=== PATIENT | male | born 1970 | race Caucasian/White ===

== ENCOUNTER 2017-01-11 14:16 | Inpatient (IN) | payer MEDICAID ==
[~2017-01-11] VITALS: Ht 170.2 cm; Wt 181.1 kg
[2017-01-11 15:30] LABS: Basophils # (auto) 0.1 uL; Basophils % (auto) 0.8 % (0.0-2.0); Eosinophils # (auto) 0.2 uL; Eosinophils % (auto) 1.5 % (0.0-7.0); Hematocrit 40.8 % (41.0-53.0); Hemoglobin 13.7 g/dL (13.5-17.5); Lymphocytes # (auto) 1.3 uL; Lymphocytes % (auto) 10.2 % (10.0-50.0); Mean Corpuscular Hemoglobin 32.8 pg (28.0-32.0); Mean Corpuscular Hgb Conc. 33.5 g/dL (32.0-36.0); Mean Corpuscular Volume 97.9 fL (80.0-100.0); Mean Platelet Volume 7.6 fL (7.4-10.4); Monocytes # (auto) 1.1 uL; Monocytes % (auto) 8.9 % (0.0-12.0); Neutrophils # (auto) 9.8 uL; Neutrophils % (auto) 78.6 % (37.0-80.0); Platelet Count (auto) 209 10^3/uL (140-450); Red Cell Distribution Width 16.1 % (11.6-16.0); White Blood Cell 12.4 10^3/uL (4.4-10.8)
[2017-01-11 15:45] LABS: Albumin 3.2 g/dL (3.4-5.0); BUN/Creatinine Ratio 12.4; Bilirubin, Total 0.9 mg/dL (0.2-1.0); Calcium 8.3 mg/dL (8.5-10.1); Potassium 4.3 mmol/L (3.5-5.1); Total Protein 6.5 g/dL (6.4-8.2)
[2017-01-11] MEDS ORDERED: ENOXAPARIN SOD 30 MG/0.3 ML SYRINGE IV ONE (17:15)
[2017-01-11] MEDS ORDERED: cefTRIAXone 1GM/50ML D5W 50 ML IV ONE (17:15)
[2017-01-11] MEDS ORDERED: ASPirin 81 mg TAB PO ONE (17:15)
[2017-01-11] MEDS ORDERED: MORPHINE SULF INJ 2 MG/ML SYRINGE 1ML IV PRN (17:45)
[2017-01-11] MEDS: DOXYCYCLINE HYC 100MG/250ML 250 ML IV SCH (17:45)
[2017-01-11] MEDS ORDERED: PROMETHAZINE HCL 25 MG/ML 1ML IV PRN (17:45)
[2017-01-11] MEDS ORDERED: ALBUTEROL SULF 2.5 MG/0.5ML(0.5%) NEB SOLN NEB PRN (17:45)
[2017-01-11] MEDS ORDERED: NITROGLYCERIN 0.4 MG SL TAB SL PRN (17:45)
[2017-01-11] MEDS ORDERED: OSELTAMIVIR 75 MG CAP PO ONE (17:45)
[2017-01-11] MEDS ORDERED: LORazepam 0.5 MG TAB PO PRN (17:45)
[2017-01-11] MEDS ORDERED: LACTULOSE 20Gm/30ML SOLN PO PRN (17:45)
[2017-01-11] MEDS: IPRATROPIUM BROM 0.5 MG/2.5ML INH SOL NEB SCH (18:00)
[2017-01-11] MEDS: ALBUTEROL SULF 2.5 MG/0.5ML(0.5%) NEB SOLN NEB SCH (18:00)
[2017-01-11] MEDS ORDERED: ENALAPRIL MALEATE 2.5 MG TAB PO ONE (18:00)
[2017-01-11] MEDS ORDERED: NITROGLYCERIN 0.2MG/HR TOPICAL PATCH TD ONE (18:15)
[2017-01-11 18:51] LABS: B-Type Natriuretic Peptide 1213.8 pg/mL (0-100); Temperature: 22.7 C (20.0-25.0)
[2017-01-11] MEDS ORDERED: IOHEXOL 350 MG/ML 100ML IJ ONE ×2 (19:08→23:12)
[2017-01-11] MEDS: FUROSEMIDE 20 MG/2 ML VIAL IV SCH (20:36)
[2017-01-11] MEDS: POTASSIUM CHL 10 Meq TABLET PO SCH (21:05)
[2017-01-11] MEDS: MORPHINE SULF INJ 2 MG/ML SYRINGE 1ML IV PRN (21:15)
[2017-01-11] MEDS: SODIUM CHLOR 0.9% PF (SALINE LOCK) 10ML VIAL IV SCH (21:57)
[2017-01-11] MEDS: CARVEDILOL 3.125 MG TAB PO SCH (22:00)
[2017-01-12] MEDS: OSELTAMIVIR 75 MG CAP PO SCH ×3 (01:15→22:00)
[2017-01-12] MEDS: TEMAZEPAM 15 MG CAP PO PRN (01:15)
[2017-01-12 01:16] VITALS: BP 110/60
[2017-01-12] MEDS: HYDROcodone-ACET 5/325MG TAB PO PRN ×3 (01:16→09:51)
[2017-01-12 04:49] LABS: Basophils # (auto) 0.1 uL; Basophils % (auto) 0.6 % (0.0-2.0); Eosinophils # (auto) 0.1 uL; Eosinophils % (auto) 1.1 % (0.0-7.0); Hematocrit 39.2 % (41.0-53.0); Hemoglobin 12.8 g/dL (13.5-17.5); Lymphocytes % (auto) 9.9 % (10.0-50.0); Mean Corpuscular Hemoglobin 32.1 pg (28.0-32.0); Mean Corpuscular Hgb Conc. 32.7 g/dL (32.0-36.0); Mean Corpuscular Volume 98.1 fL (80.0-100.0); Mean Platelet Volume 7.5 fL (7.4-10.4); Monocytes # (auto) 0.9 uL; Neutrophils # (auto) 7.7 uL; Neutrophils % (auto) 79.4 % (37.0-80.0); Platelet Count (auto) 193 10^3/uL (140-450); White Blood Cell 9.7 10^3/uL (4.4-10.8)
[2017-01-12 05:04] LABS: Temperature: 20.1 C (20.0-25.0)
[2017-01-12 05:15] LABS: Albumin 2.9 g/dL (3.4-5.0); BUN/Creatinine Ratio 13.3; Calcium 7.9 mg/dL (8.5-10.1); Potassium 4.3 mmol/L (3.5-5.1)
[2017-01-12] MEDS: ENOXAPARIN SOD 80 MG/0.8ML SYRINGE SC SCH ×2 (05:27→16:39)
[2017-01-12] MEDS: DOXYCYCLINE HYC 100MG/250ML 250 ML IV SCH ×2 (05:45→17:29)
[2017-01-12] MEDS: SODIUM CHLOR 0.9% PF (SALINE LOCK) 10ML VIAL IV SCH ×3 (06:00→22:06)
[2017-01-12] MEDS: ALBUTEROL SULF 2.5 MG/0.5ML(0.5%) NEB SOLN NEB SCH ×4 (07:00→18:50)
[2017-01-12] MEDS: IPRATROPIUM BROM 0.5 MG/2.5ML INH SOL NEB SCH ×4 (07:00→18:50)
[2017-01-12] MEDS: FUROSEMIDE 20 MG/2 ML VIAL IV SCH (09:47)
[2017-01-12] MEDS: ENALAPRIL MALEATE 2.5 MG TAB PO SCH (09:48)
[2017-01-12] MEDS: CARVEDILOL 3.125 MG TAB PO SCH ×2 (09:48→22:00)
[2017-01-12] MEDS: NITROGLYCERIN 0.2MG/HR TOPICAL PATCH TD SCH (09:49)
[2017-01-12] MEDS ORDERED: ENOXAPARIN SOD 40 MG/0.4 ML SYRINGE SC SCH (10:00)
[2017-01-12] MEDS: ASPirin 81 mg TAB PO SCH (10:04)
[2017-01-12] MEDS: POTASSIUM CHL 10 Meq TABLET PO SCH (10:05)
[2017-01-12 17:17] LABS: INR 1.08 (0.9-1.15); Partial Thromboplastin Time 26.8 sec (22.64-33.71); Prothrombin Time 11.1 sec (9.37-12.3)
[2017-01-12] MEDS: MORPHINE SULF INJ 2 MG/ML SYRINGE 1ML IV PRN ×2 (17:30→23:12)
[2017-01-12] MEDS ORDERED: WARFARIN SODIUM 10 MG TAB PO ONE (18:00)
[2017-01-12] MEDS: ACETAMINOPHEN 500 MG TAB PO PRN (19:46)
[2017-01-12 21:45] VITALS: BP 149/75
[2017-01-12] MEDS: methylPREDNISolone SOD SUCC 40 MG/ML VL IV SCH (22:25)
[2017-01-13] MEDS: ALBUTEROL SULF 2.5 MG/0.5ML(0.5%) NEB SOLN NEB SCH ×4 (00:30→18:56)
[2017-01-13] MEDS: IPRATROPIUM BROM 0.5 MG/2.5ML INH SOL NEB SCH ×4 (00:30→18:56)
[2017-01-13 01:20] VITALS: BP 108/44
[2017-01-13] MEDS: ACETAMINOPHEN 500 MG TAB PO PRN (01:31)
[2017-01-13] MEDS: TEMAZEPAM 15 MG CAP PO PRN (01:31)
[2017-01-13 04:00] VITALS: BP 104/59
[2017-01-13 04:57] LABS: Basophils # (auto) 0 uL; Basophils % (auto) 0.1 % (0.0-2.0); Eosinophils # (auto) 0 uL; Hematocrit 40.6 % (41.0-53.0); Hemoglobin 13.5 g/dL (13.5-17.5); Lymphocytes # (auto) 0.4 uL; Mean Corpuscular Hemoglobin 32.3 pg (28.0-32.0); Mean Corpuscular Hgb Conc. 33.3 g/dL (32.0-36.0); Mean Corpuscular Volume 96.9 fL (80.0-100.0); Monocytes # (auto) 0.1 uL; Monocytes % (auto) 2.2 % (0.0-12.0); Neutrophils % (auto) 91.7 % (37.0-80.0); Platelet Count (auto) 186 10^3/uL (140-450); White Blood Cell 6.6 10^3/uL (4.4-10.8)
[2017-01-13 05:25] LABS: INR 1.14 (0.9-1.15); Partial Thromboplastin Time 29.1 sec (22.64-33.71); Prothrombin Time 11.7 sec (9.37-12.3)
[2017-01-13 05:30] LABS: BUN/Creatinine Ratio 13.7; Calcium 8.5 mg/dL (8.5-10.1); Magnesium 2.1 mg/dL (1.6-2.6); Phosphorus 2.8 mg/dL (2.5-4.90); Potassium 4.4 mmol/L (3.5-5.1)
[2017-01-13] MEDS: DOXYCYCLINE HYC 100MG/250ML 250 ML IV SCH ×2 (06:03→17:29)
[2017-01-13] MEDS: ENOXAPARIN SOD 80 MG/0.8ML SYRINGE SC SCH ×2 (06:03→17:29)
[2017-01-13] MEDS: SODIUM CHLOR 0.9% PF (SALINE LOCK) 10ML VIAL IV SCH ×3 (06:03→22:56)
[2017-01-13] MEDS: methylPREDNISolone SOD SUCC 40 MG/ML VL IV SCH ×3 (06:03→22:55)
[2017-01-13 08:00] VITALS: BP 111/77
[2017-01-13] MEDS: NITROGLYCERIN 0.2MG/HR TOPICAL PATCH TD SCH (10:00)
[2017-01-13] MEDS: ENALAPRIL MALEATE 2.5 MG TAB PO SCH (10:00)
[2017-01-13] MEDS: ASPirin 81 mg TAB PO SCH (10:12)
[2017-01-13] MEDS: CARVEDILOL 3.125 MG TAB PO SCH ×2 (10:12→22:56)
[2017-01-13] MEDS: POTASSIUM CHL 10 Meq TABLET PO SCH (10:12)
[2017-01-13] MEDS: FUROSEMIDE 20 MG/2 ML VIAL IV SCH (10:12)
[2017-01-13] MEDS: HYDROcodone-ACET 5/325MG TAB PO PRN ×2 (10:13→19:33)
[2017-01-13] MEDS: NICOTINE 14 MG/24HR TOPICAL PATCH TD SCH (13:57)
[2017-01-13 16:00] VITALS: BP 112/79
[2017-01-13] MEDS ORDERED: WARFARIN SODIUM 10 MG TAB PO ONE (17:00)
[2017-01-13 19:51] VITALS: BP 110/74
[2017-01-14] VITALS: BP 117/80
[2017-01-14] MEDS: ALBUTEROL SULF 2.5 MG/0.5ML(0.5%) NEB SOLN NEB SCH ×4 (00:50→18:54)
[2017-01-14] MEDS: IPRATROPIUM BROM 0.5 MG/2.5ML INH SOL NEB SCH ×4 (00:50→18:54)
[2017-01-14] MEDS: TEMAZEPAM 15 MG CAP PO PRN ×2 (01:05→22:21)
[2017-01-14] MEDS: HYDROcodone-ACET 5/325MG TAB PO PRN (01:06)
[2017-01-14] MEDS: MORPHINE SULF INJ 2 MG/ML SYRINGE 1ML IV PRN ×2 (01:16→19:36)
[2017-01-14 04:00] VITALS: BP 97/71
[2017-01-14 05:01] LABS: Basophils # (auto) 0 uL; Eosinophils # (auto) 0 uL; Hematocrit 41.3 % (41.0-53.0); Hemoglobin 13.8 g/dL (13.5-17.5); Lymphocytes # (auto) 0.7 uL; Mean Corpuscular Hemoglobin 32.4 pg (28.0-32.0); Mean Corpuscular Hgb Conc. 33.3 g/dL (32.0-36.0); Mean Corpuscular Volume 97.5 fL (80.0-100.0); Mean Platelet Volume 7.6 fL (7.4-10.4); Monocytes # (auto) 0.5 uL; Monocytes % (auto) 4.3 % (0.0-12.0); Neutrophils # (auto) 10.2 uL; Neutrophils % (auto) 89.7 % (37.0-80.0); Platelet Count (auto) 200 10^3/uL (140-450); Red Cell Distribution Width 15.9 % (11.6-16.0); White Blood Cell 11.4 10^3/uL (4.4-10.8)
[2017-01-14 05:15] LABS: Partial Thromboplastin Time 29.9 sec (22.64-33.71)
[2017-01-14 05:16] LABS: INR 1.52 (0.9-1.15); Prothrombin Time 15.7 sec (9.37-12.3)
[2017-01-14 05:19] LABS: Calcium 8.6 mg/dL (8.5-10.1); Magnesium 2.2 mg/dL (1.6-2.6); Potassium 4.7 mmol/L (3.5-5.1)
[2017-01-14 05:22] LABS: BUN/Creatinine Ratio 23.2; Phosphorus 2.9 mg/dL (2.5-4.90)
[2017-01-14] MEDS ORDERED: FURO40TA PO (05:40)
[2017-01-14] MEDS ORDERED: CAR3125T PO (05:40)
[2017-01-14] MEDS ORDERED: ENA2.5T PO (05:40)
[2017-01-14] MEDS: ENOXAPARIN SOD 80 MG/0.8ML SYRINGE SC SCH ×2 (06:33→17:18)
[2017-01-14] MEDS: SODIUM CHLOR 0.9% PF (SALINE LOCK) 10ML VIAL IV SCH ×3 (06:34→22:23)
[2017-01-14] MEDS: DOXYCYCLINE HYC 100MG/250ML 250 ML IV SCH ×2 (06:34→17:18)
[2017-01-14 08:10] VITALS: BP 112/73
[2017-01-14] MEDS: ACETAMINOPHEN 500 MG TAB PO PRN (09:02)
[2017-01-14] MEDS: ENALAPRIL MALEATE 2.5 MG TAB PO SCH (10:00)
[2017-01-14] MEDS: POTASSIUM CHL 10 Meq TABLET PO SCH (10:00)
[2017-01-14] MEDS: NITROGLYCERIN 0.2MG/HR TOPICAL PATCH TD SCH (10:00)
[2017-01-14] MEDS: FUROSEMIDE 20 MG/2 ML VIAL IV SCH (10:00)
[2017-01-14] MEDS: ASPirin 81 mg TAB PO SCH (10:07)
[2017-01-14] MEDS: methylPREDNISolone SOD SUCC 40 MG/ML VL IV SCH (10:07)
[2017-01-14] MEDS: NICOTINE 14 MG/24HR TOPICAL PATCH TD SCH (10:08)
[2017-01-14] MEDS: CARVEDILOL 3.125 MG TAB PO SCH ×2 (10:08→22:22)
[2017-01-14 12:00] VITALS: BP 91/56
[2017-01-14 15:59] VITALS: BP 93/66
[2017-01-14] MEDS ORDERED: WARFARIN SODIUM 5 MG TAB PO ONE (17:00)
[2017-01-14 19:57] VITALS: BP 155/70
[2017-01-14] MEDS: guaiFENesin-DEXTROMETHORPHAN 5ML SYR PO PRN (22:20)
[2017-01-14] MEDS: predniSONE 20 MG TAB PO SCH (22:21)
[2017-01-15] VITALS (8 sets, daily range): BP systolic 88–112; BP diastolic 62–79
[2017-01-15] MEDS: MORPHINE SULF INJ 2 MG/ML SYRINGE 1ML IV PRN ×4 (01:12→22:31)
[2017-01-15] MEDS: ALBUTEROL SULF 2.5 MG/0.5ML(0.5%) NEB SOLN NEB SCH ×4 (02:00→19:56)
[2017-01-15] MEDS: IPRATROPIUM BROM 0.5 MG/2.5ML INH SOL NEB SCH ×4 (02:00→19:56)
[2017-01-15] MEDS: DOXYCYCLINE HYC 100MG/250ML 250 ML IV SCH ×2 (05:33→17:02)
[2017-01-15] MEDS: SODIUM CHLOR 0.9% PF (SALINE LOCK) 10ML VIAL IV SCH ×3 (05:33→21:28)
[2017-01-15] MEDS: ENOXAPARIN SOD 80 MG/0.8ML SYRINGE SC SCH (05:33)
[2017-01-15 06:24] LABS: Basophils # (auto) 0 uL; Eosinophils # (auto) 0 uL; Hematocrit 39.7 % (41.0-53.0); Hemoglobin 12.9 g/dL (13.5-17.5); Lymphocytes # (auto) 1.1 uL; Lymphocytes % (auto) 7.6 % (10.0-50.0); Mean Corpuscular Hgb Conc. 32.5 g/dL (32.0-36.0); Mean Corpuscular Volume 98.4 fL (80.0-100.0); Mean Platelet Volume 7.6 fL (7.4-10.4); Monocytes # (auto) 0.6 uL; Monocytes % (auto) 4.4 % (0.0-12.0); Neutrophils # (auto) 12.5 uL; Platelet Count (auto) 205 10^3/uL (140-450); Red Cell Distribution Width 16.4 % (11.6-16.0); White Blood Cell 14.2 10^3/uL (4.4-10.8)
[2017-01-15 06:36] LABS: Partial Thromboplastin Time 35.6 sec (22.64-33.71)
[2017-01-15 07:02] LABS: Prothrombin Time 29.6 sec (9.37-12.3)
[2017-01-15 07:03] LABS: INR 2.87 (0.9-1.15)
[2017-01-15 07:40] LABS: BUN/Creatinine Ratio 22.8; Calcium 8.4 mg/dL (8.5-10.1); Magnesium 2.2 mg/dL (1.6-2.6); Phosphorus 3.5 mg/dL (2.5-4.90); Potassium 4.7 mmol/L (3.5-5.1)
[2017-01-15] MEDS: guaiFENesin-DEXTROMETHORPHAN 5ML SYR PO PRN (09:13)
[2017-01-15] MEDS: ASPirin 81 mg TAB PO SCH (09:25)
[2017-01-15] MEDS: NICOTINE 14 MG/24HR TOPICAL PATCH TD SCH (09:26)
[2017-01-15] MEDS: predniSONE 20 MG TAB PO SCH ×2 (09:27→21:29)
[2017-01-15] MEDS: POTASSIUM CHL 10 Meq TABLET PO SCH (10:00)
[2017-01-15] MEDS: CARVEDILOL 3.125 MG TAB PO SCH ×2 (10:00→21:29)
[2017-01-15] MEDS: FUROSEMIDE 20 MG/2 ML VIAL IV SCH (10:00)
[2017-01-15] MEDS: NITROGLYCERIN 0.2MG/HR TOPICAL PATCH TD SCH (10:00)
[2017-01-15] MEDS: ENALAPRIL MALEATE 2.5 MG TAB PO SCH (10:00)
[2017-01-16] MEDS: IPRATROPIUM BROM 0.5 MG/2.5ML INH SOL NEB SCH ×4 (00:29→18:50)
[2017-01-16] MEDS: ALBUTEROL SULF 2.5 MG/0.5ML(0.5%) NEB SOLN NEB SCH ×4 (00:30→18:50)
[2017-01-16] MEDS: MORPHINE SULF INJ 2 MG/ML SYRINGE 1ML IV PRN ×4 (02:52→16:58)
[2017-01-16] MEDS: SODIUM CHLOR 0.9% PF (SALINE LOCK) 10ML VIAL IV SCH ×2 (04:46→14:32)
[2017-01-16] MEDS: DOXYCYCLINE HYC 100MG/250ML 250 ML IV SCH ×2 (04:47→17:09)
[2017-01-16 05:00] VITALS: BP 103/48
[2017-01-16 05:59] LABS: Basophils # (auto) 0 uL; Eosinophils # (auto) 0 uL; Eosinophils % (auto) 0.1 % (0.0-7.0); Hematocrit 42.5 % (41.0-53.0); Hemoglobin 13.8 g/dL (13.5-17.5); Lymphocytes # (auto) 0.8 uL; Lymphocytes % (auto) 8.1 % (10.0-50.0); Mean Corpuscular Hemoglobin 31.9 pg (28.0-32.0); Mean Corpuscular Hgb Conc. 32.4 g/dL (32.0-36.0); Mean Corpuscular Volume 98.5 fL (80.0-100.0); Mean Platelet Volume 7.5 fL (7.4-10.4); Monocytes # (auto) 0.6 uL; Monocytes % (auto) 6.2 % (0.0-12.0); Neutrophils # (auto) 8.9 uL; Neutrophils % (auto) 85.6 % (37.0-80.0); Platelet Count (auto) 202 10^3/uL (140-450); Red Cell Distribution Width 16.4 % (11.6-16.0); White Blood Cell 10.4 10^3/uL (4.4-10.8)
[2017-01-16 06:19] LABS: Partial Thromboplastin Time 32.4 sec (22.64-33.71)
[2017-01-16 06:30] LABS: INR 2.02 (0.9-1.15); Prothrombin Time 21.8 sec (9.37-12.3)
[2017-01-16 06:41] LABS: BUN/Creatinine Ratio 23.9; Calcium 8.4 mg/dL (8.5-10.1); Magnesium 2.4 mg/dL (1.6-2.6); Potassium 5.3 mmol/L (3.5-5.1)
[2017-01-16 08:00] VITALS: BP 99/72
[2017-01-16] MEDS: HYDROcodone-ACET 5/325MG TAB PO PRN ×2 (08:33→21:55)
[2017-01-16] MEDS: POTASSIUM CHL 10 Meq TABLET PO SCH (10:00)
[2017-01-16] MEDS: ENALAPRIL MALEATE 2.5 MG TAB PO SCH (10:00)
[2017-01-16] MEDS: NITROGLYCERIN 0.2MG/HR TOPICAL PATCH TD SCH (10:00)
[2017-01-16] MEDS: CARVEDILOL 3.125 MG TAB PO SCH ×2 (10:19→21:55)
[2017-01-16] MEDS: predniSONE 20 MG TAB PO SCH ×2 (10:19→21:55)
[2017-01-16] MEDS: ASPirin 81 mg TAB PO SCH (10:19)
[2017-01-16] MEDS: FUROSEMIDE 20 MG/2 ML VIAL IV SCH (10:19)
[2017-01-16] MEDS: NICOTINE 14 MG/24HR TOPICAL PATCH TD SCH (10:20)
[2017-01-16 12:30] VITALS: BP 110/78
[2017-01-16 17:00] VITALS: BP 106/75
[2017-01-16] MEDS ORDERED: WARFARIN SODIUM 5 MG TAB PO ONE (17:00)
[2017-01-16] MEDS: TEMAZEPAM 15 MG CAP PO PRN (21:55)
[2017-01-16 21:59] VITALS: BP 92/56
[2017-01-17] MEDS: ALBUTEROL SULF 2.5 MG/0.5ML(0.5%) NEB SOLN NEB SCH ×4 (00:16→18:25)
[2017-01-17] MEDS: IPRATROPIUM BROM 0.5 MG/2.5ML INH SOL NEB SCH ×4 (00:16→18:25)
[2017-01-17] MEDS: HYDROcodone-ACET 5/325MG TAB PO PRN ×3 (04:13→18:28)
[2017-01-17 05:00] VITALS: BP 93/56
[2017-01-17] MEDS: SODIUM CHLOR 0.9% PF (SALINE LOCK) 10ML VIAL IV SCH ×4 (05:38→21:58)
[2017-01-17] MEDS: DOXYCYCLINE HYC 100MG/250ML 250 ML IV SCH ×2 (05:39→17:37)
[2017-01-17 07:38] LABS: INR 1.86 (0.9-1.15); Partial Thromboplastin Time 30.6 sec (22.64-33.71); Prothrombin Time 20.1 sec (9.37-12.3)
[2017-01-17 08:24] VITALS: BP 97/68
[2017-01-17] MEDS: NITROGLYCERIN 0.2MG/HR TOPICAL PATCH TD SCH (10:00)
[2017-01-17] MEDS: ENALAPRIL MALEATE 2.5 MG TAB PO SCH (10:00)
[2017-01-17] MEDS: FUROSEMIDE 20 MG/2 ML VIAL IV SCH (10:00)
[2017-01-17] MEDS: NICOTINE 14 MG/24HR TOPICAL PATCH TD SCH (10:07)
[2017-01-17] MEDS: CARVEDILOL 3.125 MG TAB PO SCH ×2 (10:07→21:59)
[2017-01-17] MEDS: predniSONE 20 MG TAB PO SCH ×2 (10:08→21:58)
[2017-01-17] MEDS: ASPirin 81 mg TAB PO SCH (10:08)
[2017-01-17 12:01] VITALS: BP 98/67
[2017-01-17] MEDS: FAMOTIDINE 20 MG TAB PO SCH ×2 (13:32→21:58)
[2017-01-17 15:57] LABS: BUN/Creatinine Ratio 26.9; Calcium 8.6 mg/dL (8.5-10.1)
[2017-01-17 16:01] VITALS: BP 102/74
[2017-01-17] MEDS ORDERED: WARFARIN SODIUM 5 MG TAB PO ONE (17:00)
[2017-01-17 22:00] VITALS: BP 117/81
[2017-01-17] MEDS: MORPHINE SULF INJ 2 MG/ML SYRINGE 1ML IV PRN (22:53)
[2017-01-18] MEDS: ALBUTEROL SULF 2.5 MG/0.5ML(0.5%) NEB SOLN NEB SCH ×3 (00:45→12:55)
[2017-01-18] MEDS: IPRATROPIUM BROM 0.5 MG/2.5ML INH SOL NEB SCH ×3 (00:45→12:55)
[2017-01-18] MEDS: MORPHINE SULF INJ 2 MG/ML SYRINGE 1ML IV PRN ×2 (03:33→09:29)
[2017-01-18 05:00] VITALS: BP 99/71
[2017-01-18 05:28] LABS: Partial Thromboplastin Time 29.8 sec (22.64-33.71)
[2017-01-18 06:01] LABS: INR 2.17 (0.9-1.15); Prothrombin Time 23.4 sec (9.37-12.3)
[2017-01-18] MEDS: DOXYCYCLINE HYC 100MG/250ML 250 ML IV SCH (06:10)
[2017-01-18] MEDS: SODIUM CHLOR 0.9% PF (SALINE LOCK) 10ML VIAL IV SCH (06:11)
[2017-01-18 09:00] VITALS: BP 110/80
[2017-01-18] MEDS: ASPirin 81 mg TAB PO SCH (09:27)
[2017-01-18] MEDS: predniSONE 20 MG TAB PO SCH (09:27)
[2017-01-18] MEDS: FAMOTIDINE 20 MG TAB PO SCH (09:28)
[2017-01-18] MEDS: ENALAPRIL MALEATE 2.5 MG TAB PO SCH (09:28)
[2017-01-18] MEDS: CARVEDILOL 3.125 MG TAB PO SCH (09:29)
[2017-01-18] MEDS: FUROSEMIDE 20 MG/2 ML VIAL IV SCH (09:29)
[2017-01-18] MEDS: NICOTINE 14 MG/24HR TOPICAL PATCH TD SCH (09:31)
[2017-01-18] MEDS: NITROGLYCERIN 0.2MG/HR TOPICAL PATCH TD SCH (09:39)
[2017-01-18] MEDS: HYDROcodone-ACET 5/325MG TAB PO PRN (11:35)
[2017-01-18 13:00] VITALS: BP 94/71
[2017-01-18 13:13] VITALS: BP 94/71
[2017-01-18 14:40] VITALS: BP 94/71
[2017-01-18 15:20] VITALS: BP 94/71
[2017-01-18] MEDS ORDERED: WARFARIN SODIUM 5 MG TAB PO ONE (17:00)
== END 2017-01-18 14:40 | disposition home or self-care (01) | DRG 194 ==
LOC: ER 14:16 → TELE 14:17 → ICU CENTRL 01-12 23:43 → DOU IN ICU 01-13 00:12 → TELE-CENTR 01-15 01:57 → CENTRAL 01-17 23:30
PROVIDERS: ADMIT Internal Medicine; ATTEND Internal Medicine
DX: I50.43 Acute on chronic combined systolic (congestive) and diastolic (congestive) heart failure (principal); I26.99 Other pulmonary embolism without acute cor pulmonale; J18.9 Pneumonia, unspecified organism; J44.0 Chronic obstructive pulmonary disease with (acute) lower respiratory infection; F11.20 Opioid dependence, uncomplicated; N20.0 Calculus of kidney; I42.0 Dilated cardiomyopathy; I11.0 Hypertensive heart disease with heart failure; J44.9 Chronic obstructive pulmonary disease, unspecified; J98.11 Atelectasis; I10 Essential (primary) hypertension; F17.210 Nicotine dependence, cigarettes, uncomplicated; J44.1 Chronic obstructive pulmonary disease with (acute) exacerbation; Z79.01 Long term (current) use of anticoagulants; Z80.3 Family history of malignant neoplasm of breast; Z83.3 Family history of diabetes mellitus; Z87.442 Personal history of urinary calculi; F15.90 Other stimulant use, unspecified, uncomplicated
CPT/HCPCS: 36415; 36600; 71010; 71020; 71275; 74176; 80048; 80053; 80061; 82550; 82805; 83735; 83880; 84100; 84443; 84484; 85025; 85379; 85610; 85652; 85730; 86141; 87040; 87081; 87400; 93005; 93306; 94640; 96365; 96366; 96375; G0434; J0696; J3490

== ENCOUNTER 2017-01-29 05:46 | Inpatient (IN) | payer MEDICAID ==
[~2017-01-29] VITALS: Ht 170.2 cm; Wt 80.1 kg
[~2017-01-29 05:46] MED LIST: CAR3125T PO; ENA2.5T PO; FURO40TA PO
[2017-01-29 06:23] LABS: Basophils # (auto) 0.1 uL; Basophils % (auto) 0.9 % (0.0-2.0); Eosinophils # (auto) 0.1 uL; Hemoglobin 13.8 g/dL (13.5-17.5); Lymphocytes # (auto) 2.3 uL; Lymphocytes % (auto) 19.6 % (10.0-50.0); Mean Corpuscular Hemoglobin 31.7 pg (28.0-32.0); Mean Corpuscular Hgb Conc. 32.8 g/dL (32.0-36.0); Mean Corpuscular Volume 96.4 fL (80.0-100.0); Mean Platelet Volume 7.9 fL (7.4-10.4); Monocytes % (auto) 8.3 % (0.0-12.0); Neutrophils # (auto) 8.2 uL; Neutrophils % (auto) 70.2 % (37.0-80.0); Platelet Count (auto) 197 10^3/uL (140-450); White Blood Cell 11.7 10^3/uL (4.4-10.8)
[2017-01-29 06:45] LABS: Albumin 3.3 g/dL (3.4-5.0); BUN/Creatinine Ratio 16.8; Bilirubin, Total 0.7 mg/dL (0.2-1.0); Calcium 8.8 mg/dL (8.5-10.1); Potassium 4.4 mmol/L (3.5-5.1); Total Protein 6.7 g/dL (6.4-8.2)
[2017-01-29 07:15] LABS: INR 2.23 (0.9-1.15); Prothrombin Time 24.1 sec (9.37-12.3)
[2017-01-29] MEDS ORDERED: FUROSEMIDE 40 MG/4 ML VIAL IV ONE (07:15)
[2017-01-29] MEDS ORDERED: NALBUPHINE HCL 10 MG/1ml INJECTION IV ONE (07:45)
[2017-01-29] MEDS ORDERED: PROMETHAZINE W/CODEINE 5 ML ORAL SYRUP PO ONE (07:45)
[2017-01-29 07:49] LABS: B-Type Natriuretic Peptide 1044.34 pg/mL (0-100)
[2017-01-29] MEDS ORDERED: DOCUSATE SOD 100 MG CAP PO PRN (10:15)
[2017-01-29] MEDS ORDERED: HYDROcodone-ACET 5/325MG TAB PO PRN (10:15)
[2017-01-29] MEDS ORDERED: MORPHINE SULF INJ 2 MG/ML SYRINGE 1ML IV PRN (10:15)
[2017-01-29] MEDS ORDERED: CARVEDILOL 3.125 MG TAB PO ONE (10:15)
[2017-01-29] MEDS ORDERED: ONDANSETRON HCL 4 MG/2 ML VIAL IV PRN (10:15)
[2017-01-29] MEDS ORDERED: cefTRIAXone 1GM/50ML D5W 50 ML IV ONE (10:15)
[2017-01-29] MEDS ORDERED: ENALAPRIL MALEATE 2.5 MG TAB PO ONE ×2 (10:15→10:30)
[2017-01-29] MEDS ORDERED: NITROGLYCERIN 0.4 MG SL TAB SL PRN (10:15)
[2017-01-29] MEDS ORDERED: AZITHROMYCIN 500MG/D5W 250ML 250 ML IV ONE (10:15)
[2017-01-29] MEDS ORDERED: TEMAZEPAM 15 MG CAP PO PRN (10:15)
[2017-01-29] MEDS ORDERED: ACETAMINOPHEN 325 MG TAB PO PRN (10:15)
[2017-01-29] MEDS ORDERED: MULTIPLE VITAMIN TAB PO ONE (10:30)
[2017-01-29] MEDS ORDERED: IPRATROPIUM BROM 0.5 MG/2.5ML INH SOL ONE (11:29)
[2017-01-29] MEDS ORDERED: ALBUTEROL SULF 2.5 MG/0.5ML(0.5%) NEB SOLN ONE (11:30)
[2017-01-29] MEDS: ALBUTEROL SULF 2.5 MG/0.5ML(0.5%) NEB SOLN NEB SCH ×3 (11:38→23:55)
[2017-01-29] MEDS: IPRATROPIUM BROM 0.5 MG/2.5ML INH SOL NEB SCH ×3 (11:38→23:55)
[2017-01-29] MEDS ORDERED: WARF5TAB PO (13:08)
[2017-01-29] MEDS ORDERED: LISI2.5T47 PO (13:08)
[2017-01-29 13:49] LABS: Urine Bilirubin Negative (Negative); Urine Color Yellow (Yellow); Urine Glucose Normal (Normal); Urine Ketone Negative (Negative); Urine Mucus FEW (None Seen); Urine Nitrite Negative (Negative); Urine RBC 10 /hpf (0 - 3); Urine Urobilinogen Normal (Negative); Urine pH 5.5 (5.0-8.0)
[2017-01-29 13:51] LABS: Urine Blood 1+ /uL (Negative)
[2017-01-29] MEDS: MORPHINE SULF INJ 2 MG/ML SYRINGE 1ML IV PRN ×2 (14:13→21:22)
[2017-01-29] MEDS: SODIUM CHLOR 0.9% PF (SALINE LOCK) 10ML VIAL IV SCH ×2 (14:14→21:20)
[2017-01-29 14:45] VITALS: BP 113/74
[2017-01-29] MEDS ORDERED: WARFARIN SODIUM 2 MG TAB PO ONE (17:00)
[2017-01-29 17:21] VITALS: BP_SYST 100; BP_SYST 113; BP_DIAS 74; BP_DIAS 76
[2017-01-29] MEDS: FUROSEMIDE 40 MG/4 ML VIAL IV SCH (17:32)
[2017-01-29] MEDS: BOOST PLUS 8 ounce PO SCH (18:00)
[2017-01-29] MEDS: CARVEDILOL 3.125 MG TAB PO SCH (21:21)
[2017-01-29 22:00] VITALS: BP 108/71
[2017-01-29 22:28] VITALS: BP 108/71
[2017-01-30] MEDS: MORPHINE SULF INJ 2 MG/ML SYRINGE 1ML IV PRN ×2 (02:20→06:21)
[2017-01-30 05:08] VITALS: BP 106/73
[2017-01-30] MEDS: IPRATROPIUM BROM 0.5 MG/2.5ML INH SOL NEB SCH ×2 (05:47→11:07)
[2017-01-30] MEDS: ALBUTEROL SULF 2.5 MG/0.5ML(0.5%) NEB SOLN NEB SCH ×2 (05:47→11:07)
[2017-01-30] MEDS: SODIUM CHLOR 0.9% PF (SALINE LOCK) 10ML VIAL IV SCH ×2 (06:21→14:00)
[2017-01-30] MEDS: FUROSEMIDE 40 MG/4 ML VIAL IV SCH (06:21)
[2017-01-30 08:08] VITALS: BP 116/74
[2017-01-30] MEDS: BOOST PLUS 8 ounce PO SCH ×2 (08:38→12:00)
[2017-01-30] MEDS ORDERED: cefTRIAXone 1GM/50ML D5W 50 ML IV SCH (09:00)
[2017-01-30] MEDS: CARVEDILOL 3.125 MG TAB PO SCH (09:25)
[2017-01-30 09:57] LABS: Partial Thromboplastin Time 31.7 sec (22.64-33.71)
[2017-01-30] MEDS ORDERED: MULTIPLE VITAMIN TAB PO SCH (10:00)
[2017-01-30] MEDS ORDERED: ENALAPRIL MALEATE 2.5 MG TAB PO SCH (10:00)
[2017-01-30] MEDS ORDERED: AZITHROMYCIN 500MG/D5W 250ML 250 ML IV SCH (10:00)
[2017-01-30 10:02] LABS: INR 1.88 (0.9-1.15); Prothrombin Time 20.3 sec (9.37-12.3)
[2017-01-30 12:06] VITALS: BP 107/62
[2017-01-30] MEDS ORDERED: LORazepam 0.5 MG TAB PO ONE (12:30)
[2017-01-30 13:07] VITALS: BP 116/74
[2017-01-30] MEDS ORDERED: WARFARIN SODIUM 5 MG TAB PO ONE (17:00)
[2017-01-30] MEDS ORDERED: FUROSEMIDE 40 MG TAB PO SCH (18:00)
[2017-01-31] MEDS ORDERED: WARFARIN SODIUM 5 MG TAB PO SCH (10:00)
[2017-01-31] MEDS ORDERED: CARVEDILOL 3.125 MG TAB PO SCH (10:00)
== END 2017-01-30 14:05 | disposition home or self-care (01) | DRG 720 ==
LOC: EDBD 05:46 → ER 05:48 → TELE 05:49 → ER 10:37 → TELE-E-ADS 12:46 → TELE-CENTR 13:45
PROVIDERS: ADMIT Internal Medicine; ATTEND Nurse Practitioner Acute Care
DX: A41.9 Sepsis, unspecified organism (principal); D68.9 Coagulation defect, unspecified; J18.9 Pneumonia, unspecified organism; I13.0 Hypertensive heart and chronic kidney disease with heart failure and stage 1 through stage 4 chronic kidney disease, or unspecified chronic kidney disease; J44.0 Chronic obstructive pulmonary disease with (acute) lower respiratory infection; J45.901 Unspecified asthma with (acute) exacerbation; I50.9 Heart failure, unspecified; J44.1 Chronic obstructive pulmonary disease with (acute) exacerbation; E44.1 Mild protein-calorie malnutrition; J20.9 Acute bronchitis, unspecified; N18.2 Chronic kidney disease, stage 2 (mild); N20.0 Calculus of kidney; F17.210 Nicotine dependence, cigarettes, uncomplicated; T45.515A Adverse effect of anticoagulants, initial encounter; R94.5 Abnormal results of liver function studies; F11.10 Opioid abuse, uncomplicated; F15.10 Other stimulant abuse, uncomplicated; R74.0 Nonspecific elevation of levels of transaminase and lactic acid dehydrogenase [LDH]; Z68.27 Body mass index [BMI] 27.0-27.9, adult; Z86.711 Personal history of pulmonary embolism
CPT/HCPCS: 36415; 71010; 80053; 81001; 83880; 84484; 85025; 85379; 85610; 85730; 87081; 87086; 93005; 94640; 94761; 96374; 96375; 96376; G0434; J0696

== ENCOUNTER 2017-04-09 14:11 | Inpatient (IN) | payer MEDICAID ==
[~2017-04-09] VITALS: Ht 170.2 cm; Wt 79.6 kg
[~2017-04-09 14:11] MED LIST changes: -ENA2.5T PO; +LISI2.5T47 PO; +WARF5TAB PO
[2017-04-09 15:00] LABS: Basophils # (auto) 0 uL; Basophils % (auto) 0.5 % (0.0-2.0); CONDITION Y; DEFINITIVE SEE PRINTOUT; Eosinophils # (auto) 0.1 uL; Eosinophils % (auto) 1.3 % (0.0-7.0); Hematocrit 33.8 % (41.0-53.0); Hemoglobin 11.6 g/dL (13.5-17.5); Lymphocytes # (auto) 1.6 uL; Lymphocytes % (auto) 18.1 % (10.0-50.0); Mean Corpuscular Hemoglobin 31.2 pg (28.0-32.0); Mean Corpuscular Hgb Conc. 34.2 g/dL (32.0-36.0); Mean Corpuscular Volume 91.1 fL (80.0-100.0); Mean Platelet Volume 6.9 fL (7.4-10.4); Monocytes # (auto) 0.9 uL; Monocytes % (auto) 10.5 % (0.0-12.0); Neutrophils # (auto) 6.1 uL; Neutrophils % (auto) 69.6 % (37.0-80.0); Platelet Count (auto) 237 10^3/uL (140-450); Red Cell Distribution Width 19.2 % (11.6-16.0); White Blood Cell 8.8 10^3/uL (4.4-10.8)
[2017-04-09] MEDS ORDERED: SODIUM CHLORIDE 0.9% 1,000 ML IVB ONE (15:04)
[2017-04-09 15:31] LABS: Albumin 3.5 g/dL (3.4-5.0); BUN/Creatinine Ratio 14.2; Bilirubin, Total 0.3 mg/dL (0.2-1.0); Calcium 8.5 mg/dL (8.5-10.1); Magnesium 2.3 mg/dL (1.6-2.6); Potassium 3.6 mmol/L (3.5-5.1); Total Protein 6.4 g/dL (6.4-8.2)
[2017-04-09 17:08] LABS: Urine Bilirubin Negative (Negative); Urine Blood TRACE /uL (Negative); Urine Color Yellow (Yellow); Urine Glucose Normal (Normal); Urine Ketone Negative (Negative); Urine Nitrite Negative (Negative); Urine RBC 13 /hpf (0 - 3); Urine Squamous Epithelial Cell FEW /hpf (<5); Urine Urobilinogen Normal (Negative); Urine pH 6.5 (5.0-8.0)
[2017-04-09] MEDS ORDERED: ONDANSETRON HCL 4 MG/2 ML VIAL IV PRN (17:30)
[2017-04-09] MEDS ORDERED: HYDROcodone-ACET 5/325MG TAB PO PRN (17:30)
[2017-04-09] MEDS ORDERED: LISINOPRIL 5 MG TAB PO ONE (17:45)
[2017-04-09] MEDS ORDERED: DIGOXIN 0.25 MG TAB PO ONE (17:45)
[2017-04-09] MEDS ORDERED: AMIO200T33 PO (17:54)
[2017-04-09] MEDS ORDERED: CEPH250C PO (17:56)
[2017-04-09] MEDS ORDERED: DIG0125T PO (17:56)
[2017-04-09] MEDS ORDERED: CITA-73 PO (17:56)
[2017-04-09] MEDS ORDERED: ASPI81CH43 PO (17:56)
[2017-04-09] MEDS: ENOXAPARIN SOD 40 MG/0.4 ML SYRINGE SC SCH (18:21)
[2017-04-09 21:00] VITALS: BP_SYST 106; BP_SYST 97; BP_DIAS 54; BP_DIAS 62
[2017-04-09] MEDS: CARVEDILOL 3.125 MG TAB PO SCH (21:42)
[2017-04-09] MEDS: FAMOTIDINE 20 MG TAB PO SCH (21:42)
[2017-04-09 22:00] VITALS: BP 106/62
[2017-04-10] VITALS (7 sets, daily range): BP systolic 97–113; BP diastolic 54–70
[2017-04-10] MEDS ORDERED: ACETAMINOPHEN 325 MG TAB PO PRN (03:15)
[2017-04-10] MEDS: FAMOTIDINE 20 MG TAB PO SCH ×2 (08:45→21:45)
[2017-04-10] MEDS: DIGOXIN 0.25 MG TAB PO SCH (08:46)
[2017-04-10] MEDS: CARVEDILOL 3.125 MG TAB PO SCH ×2 (08:46→21:52)
[2017-04-10] MEDS: LISINOPRIL 5 MG TAB PO SCH (08:47)
[2017-04-10] MEDS: MORPHINE SULF INJ 2 MG/ML SYRINGE 1ML IV PRN ×4 (13:19→21:46)
[2017-04-10] MEDS: ENOXAPARIN SOD 40 MG/0.4 ML SYRINGE SC SCH (19:15)
[2017-04-11] MEDS: MORPHINE SULF INJ 2 MG/ML SYRINGE 1ML IV PRN ×4 (02:13→15:23)
[2017-04-11 05:00] VITALS: BP 109/73
[2017-04-11 09:00] VITALS: BP 111/70
[2017-04-11] MEDS: CARVEDILOL 3.125 MG TAB PO SCH (09:17)
[2017-04-11] MEDS: FAMOTIDINE 20 MG TAB PO SCH (09:17)
[2017-04-11] MEDS: DIGOXIN 0.25 MG TAB PO SCH (09:18)
[2017-04-11] MEDS: LISINOPRIL 5 MG TAB PO SCH (09:18)
[2017-04-11 13:00] VITALS: BP 115/70
[2017-04-11 16:37] VITALS: BP 115/70
[2017-04-11 17:00] VITALS: BP 119/78
== END 2017-04-11 17:49 | disposition home or self-care (01) | DRG 111 ==
LOC: EDBD 14:11 → ER 14:15 → TELE 14:16 → TELE-CENTR 20:20
PROVIDERS: ADMIT Specialist; ATTEND Internal Medicine
DX: R42 Dizziness and giddiness (principal); I50.23 Acute on chronic systolic (congestive) heart failure; I11.0 Hypertensive heart disease with heart failure; I42.9 Cardiomyopathy, unspecified; F17.210 Nicotine dependence, cigarettes, uncomplicated; F51.04 Psychophysiologic insomnia; G89.4 Chronic pain syndrome; J44.9 Chronic obstructive pulmonary disease, unspecified; R29.700 NIHSS score 0; M47.814 Spondylosis without myelopathy or radiculopathy, thoracic region; Z83.3 Family history of diabetes mellitus; Z87.442 Personal history of urinary calculi; Z95.810 Presence of automatic (implantable) cardiac defibrillator; Z88.1 Allergy status to other antibiotic agents; Z71.9 Counseling, unspecified
CPT/HCPCS: 36415; 70450; 71020; 80053; 80162; 81001; 83735; 84484; 85025; 87081; 93005; 93886; 94761; 96360; 96361

== ENCOUNTER 2018-04-12 09:18 | Inpatient (IN) | payer MEDICAID ==
[~2018-04-12] VITALS: Ht 317.5 cm; Wt 87.8 kg
[~2018-04-12 09:18] MED LIST changes: +AMIO200T33 PO; +ASPI81CH43 PO; +CITA-73 PO; +DIG0125T PO; -WARF5TAB PO
[2018-04-12] MEDS ORDERED: SODIUM CHLORIDE 0.9% 1,000 ML IV ONE (10:21)
[2018-04-12 10:54] LABS: Basophils # (auto) 0.1 uL; Hemoglobin 13.7 g/dL (13.5-17.5); Lymphocytes # (auto) 1.6 uL
[2018-04-12 10:57] LABS: Basophils % (auto) 0.8 % (0.0-2.0); Eosinophils # (auto) 0.4 uL; Eosinophils % (auto) 3.4 % (0.0-7.0); Lymphocytes % (auto) 13.8 % (10.0-50.0); Mean Corpuscular Hemoglobin 31.9 pg (28.0-32.0); Mean Corpuscular Hgb Conc. 32.5 g/dL (32.0-36.0); Mean Corpuscular Volume 97.9 fL (80.0-100.0); Monocytes # (auto) 0.9 uL; Monocytes % (auto) 7.8 % (0.0-12.0); Neutrophils # (auto) 8.8 uL; Neutrophils % (auto) 74.2 % (37.0-80.0); Platelet Count (auto) 226 10^3/uL (140-450); Red Blood Cells 4.29 10^6/uL (4.5-5.90); White Blood Cell 11.9 10^3/uL (4.4-10.8)
[2018-04-12 11:17] LABS: Albumin 3.6 g/dL (3.4-5.0); BUN/Creatinine Ratio 17.3; Bilirubin, Total 0.5 mg/dL (0.2-1.0); Calcium 8.4 mg/dL (8.5-10.1); Potassium 4.1 mmol/L (3.5-5.1); Total Protein 6.8 g/dL (6.4-8.2)
[2018-04-12] MEDS ORDERED: LORazepam 2MG/ML-1ML VIAL IV ONE (11:30)
[2018-04-12 11:46] LABS: INR 0.91 (0.9-1.15); Partial Thromboplastin Time 26.1 sec (23.78-33.04); Prothrombin Time 9.8 sec (9.27-12.13)
[2018-04-12] MEDS ORDERED: FUROSEMIDE 40 MG/4 ML VIAL IV ONE (12:00)
[2018-04-12] MEDS ORDERED: PROMETHAZINE HCL 25 MG/ML 1ML IV PRN (13:30)
[2018-04-12] MEDS ORDERED: NITROGLYCERIN 0.4 MG SL TAB SL PRN (13:30)
[2018-04-12] MEDS ORDERED: NITROGLYCERIN 0.2MG/HR TOPICAL PATCH TD SCH (13:30)
[2018-04-12] MEDS ORDERED: MORPHINE SULF INJ 2 MG/ML SYRINGE 1ML IV PRN (13:30)
[2018-04-12] MEDS ORDERED: ALBUTEROL SULF 2.5 MG/0.5ML(0.5%) NEB SOLN NEB PRN (13:30)
[2018-04-12] MEDS ORDERED: ACETAMINOPHEN 500 MG TAB PO PRN (13:30)
[2018-04-12] MEDS ORDERED: LORazepam 0.5 MG TAB PO PRN (13:30)
[2018-04-12] MEDS ORDERED: LACTULOSE 20Gm/30ML SOLN PO PRN (13:30)
[2018-04-12] MEDS ORDERED: TEMAZEPAM 15 MG CAP PO PRN (13:30)
[2018-04-12] MEDS: PANTOPRAZOLE 40 MG TAB PO SCH (13:45)
[2018-04-12] MEDS: CITALOPRAM HYDROBR 20 MG TAB PO SCH (13:45)
[2018-04-12] MEDS: LISINOPRIL 5 MG TAB PO SCH (13:45)
[2018-04-12] MEDS: ASPirin 81 mg TAB PO SCH (13:45)
[2018-04-12] MEDS: AMIODARONE HCL 200 MG TAB PO SCH ×2 (13:45→20:04)
[2018-04-12] MEDS: SODIUM CHLOR 0.9% PF (SALINE LOCK) 10ML VIAL/SYR IV SCH ×2 (15:00→22:00)
[2018-04-12] MEDS: DOXYCYCLINE 100MG/250ML 250 ML IV SCH (15:06)
[2018-04-12] MEDS: DIGOXIN 0.125 MG TAB PO SCH (15:07)
[2018-04-12] MEDS: CARVEDILOL 3.125 MG TAB PO SCH ×3 (15:07→22:49)
[2018-04-12 15:21] LABS: Amylase 41 U/L (25-115); Lipase 146 U/L (73-393)
[2018-04-12] MEDS: NALBUPHINE HCL 10 MG/1ml INJECTION IV PRN ×2 (16:02→22:58)
[2018-04-12 16:50] VITALS: BP 137/115
[2018-04-12 16:51] VITALS: BP 137/115
[2018-04-12] MEDS: FUROSEMIDE 40 MG/4 ML VIAL IV SCH (17:50)
[2018-04-12] MEDS: POTASSIUM CHL 20 Meq TABLET PO SCH (17:50)
[2018-04-12 19:52] LABS: Alcohol, Urine < 3.0 mg/dL (0-5); Amphetamine Screen, Urine POSITIVE (NEGATIVE); Barbiturate Scree,Urine NEGATIVE (NEGATIVE); Benzodiazephine Screen, Urine NEGATIVE (NEGATIVE); Cannabinoid Screen, Urine POSITIVE (NEGATIVE); Cocaine Screen, Urine NEGATIVE (NEGATIVE); Opiate Scree,Urine NEGATIVE (NEGATIVE); Phencyclidine Screen, Urine NEGATIVE (NEGATIVE)
[2018-04-12 19:55] LABS: Urine Bacteria NONE SEEN /hpf (None Seen); Urine Blood 1+ /uL (Negative); Urine Hyaline Cast FEW /lpf (0 - 2); Urine Mucus FEW (None Seen); Urine Sperm PRESENT /hpf (None Seen); Urine WBC 7 /hpf (0 - 3)
[2018-04-12 19:57] VITALS: BP 126/89
[2018-04-12] MEDS: HYDROcodone-ACET 5/325MG TAB PO PRN (20:04)
[2018-04-12 21:57] VITALS: BP 144/89
[2018-04-12] MEDS ORDERED: ATORVASTATIN 20 MG TAB PO SCH (22:00)
[2018-04-13] MEDS: DOXYCYCLINE 100MG/250ML 250 ML IV SCH (01:09)
[2018-04-13] MEDS: NALBUPHINE HCL 10 MG/1ml INJECTION IV PRN (03:28)
[2018-04-13 04:50] VITALS: BP 132/91
[2018-04-13] MEDS: FUROSEMIDE 40 MG/4 ML VIAL IV SCH (06:00)
[2018-04-13] MEDS: SODIUM CHLOR 0.9% PF (SALINE LOCK) 10ML VIAL/SYR IV SCH (06:08)
[2018-04-13] MEDS: POTASSIUM CHL 20 Meq TABLET PO SCH (06:08)
[2018-04-13] MEDS: HYDROcodone-ACET 5/325MG TAB PO PRN (06:09)
[2018-04-13 07:17] LABS: Basophils # (auto) 0.1 uL; Basophils % (auto) 0.7 % (0.0-2.0); Eosinophils # (auto) 0.4 uL; Eosinophils % (auto) 2.9 % (0.0-7.0); Hematocrit 42.9 % (41.0-53.0); Hemoglobin 14.5 g/dL (13.5-17.5); Lymphocytes # (auto) 1.6 uL; Lymphocytes % (auto) 12.8 % (10.0-50.0); Mean Corpuscular Hemoglobin 32.9 pg (28.0-32.0); Mean Corpuscular Hgb Conc. 33.9 g/dL (32.0-36.0); Monocytes # (auto) 0.9 uL; Neutrophils # (auto) 9.5 uL; Neutrophils % (auto) 76.6 % (37.0-80.0); Nucleated Red Blood Cells % 0.1 %; Platelet Count (auto) 231 10^3/uL (140-450); Red Blood Cells 4.42 10^6/uL (4.5-5.90); Red Cell Distribution Width 14.1 % (11.8-14.3); White Blood Cell 12.4 10^3/uL (4.4-10.8)
[2018-04-13 07:41] LABS: Albumin 3.5 g/dL (3.4-5.0); BUN/Creatinine Ratio 17.8; Bilirubin, Total 1.1 mg/dL (0.2-1.0); Calcium 8.5 mg/dL (8.5-10.1); Potassium 4.2 mmol/L (3.5-5.1)
[2018-04-13 08:20] VITALS: BP 117/72
[2018-04-13] MEDS ORDERED: ENOXAPARIN SOD 40 MG/0.4 ML SYRINGE SC SCH (10:00)
[2018-04-13] MEDS: DIGOXIN 0.125 MG TAB PO SCH (10:27)
[2018-04-13] MEDS: CITALOPRAM HYDROBR 20 MG TAB PO SCH (10:28)
[2018-04-13] MEDS: ASPirin 81 mg TAB PO SCH (10:28)
[2018-04-13] MEDS: AMIODARONE HCL 200 MG TAB PO SCH (10:28)
[2018-04-13] MEDS: CARVEDILOL 3.125 MG TAB PO SCH (10:28)
[2018-04-13] MEDS: PANTOPRAZOLE 40 MG TAB PO SCH (10:29)
[2018-04-13] MEDS: LISINOPRIL 5 MG TAB PO SCH (10:29)
[2018-04-13 11:46] VITALS: BP 114/72
[2018-04-13 12:48] VITALS: BP 114/72
[2018-04-13] MEDS ORDERED: NITROGLYCERIN 0.2MG/HR TOPICAL PATCH TD SCH (13:00)
== END 2018-04-13 13:00 | disposition home or self-care (01) | DRG 194 ==
LOC: ER 09:18 → EDBD 09:18 → TELE 09:19 → TELE-CENTR 15:36
PROVIDERS: ADMIT Internal Medicine; ATTEND Internal Medicine
DX: I11.0 Hypertensive heart disease with heart failure (principal); I27.20 Pulmonary hypertension, unspecified; I42.9 Cardiomyopathy, unspecified; F17.210 Nicotine dependence, cigarettes, uncomplicated; F15.90 Other stimulant use, unspecified, uncomplicated; I50.23 Acute on chronic systolic (congestive) heart failure; I25.10 Atherosclerotic heart disease of native coronary artery without angina pectoris; Z83.3 Family history of diabetes mellitus; Z82.49 Family history of ischemic heart disease and other diseases of the circulatory system; K57.90 Diverticulosis of intestine, part unspecified, without perforation or abscess without bleeding; J44.9 Chronic obstructive pulmonary disease, unspecified; Z95.810 Presence of automatic (implantable) cardiac defibrillator; N20.0 Calculus of kidney; Z88.1 Allergy status to other antibiotic agents
CPT/HCPCS: 36415; 71045; 71046; 74176; 80053; 80061; 80307; 81001; 82150; 82550; 83690; 83880; 84443; 84484; 85025; 85379; 85610; 85652; 85730; 86141; 87081; 87086; 93005; 93306; 94640; 96361; 96374; 96375; J3490

== ENCOUNTER 2019-08-05 22:53 | Emergency (ER) | payer MEDICAID ==
[~2019-08-05] VITALS: Ht 170.2 cm; Wt 79.4 kg
[~2019-08-05 22:53] MED LIST changes: +ALB5IS NEB; +AMIO200T4 PO; +CARV6.2551 PO; -CITA-73 PO; +DIGO0.1238 PO; -FURO40TA PO; +FURO40TA4 PO; +IPR002IS NEB; +LEVO500T21 PO; +LISI-275 PO; -LISI2.5T47 PO; +NEBUMIS40 XX; +POTA-220 PO
[2019-08-05 23:25] VITALS: BP 138/75
== END 2019-08-06 00:56 | disposition left against medical advice (07) ==
LOC: ER 22:56
DX: R51 Headache (principal); Z53.21 Procedure and treatment not carried out due to patient leaving prior to being seen by health care provider

== ENCOUNTER 2019-08-07 02:13 | Emergency (ER) | payer MEDICAID ==
[~2019-08-07] VITALS: Ht 170.2 cm; Wt 70.3 kg
[2019-08-07 06:30] VITALS: BP 140/87
[2019-08-07] MEDS ORDERED: cefTRIAXone 1GM/50ML D5W 50 ML IV ONE (06:45)
[2019-08-07] MEDS ORDERED: cefTRIAXone SOD 1,000 MG VL IM ONE (06:45)
[2019-08-07] MEDS ORDERED: HYDROcodone-ACET 7.5/325MG TAB PO ONE (07:15)
== END 2019-08-07 07:20 | disposition home or self-care (01) ==
LOC: EDBD 02:13 → ER 02:17
DX: R23.8 Other skin changes (principal); L08.9 Local infection of the skin and subcutaneous tissue, unspecified; F17.210 Nicotine dependence, cigarettes, uncomplicated; F12.10 Cannabis abuse, uncomplicated; J44.9 Chronic obstructive pulmonary disease, unspecified; I11.0 Hypertensive heart disease with heart failure; I50.9 Heart failure, unspecified; I25.2 Old myocardial infarction; Z79.899 Other long term (current) drug therapy; Z88.1 Allergy status to other antibiotic agents; Z91.041 Radiographic dye allergy status
CPT/HCPCS: 96372; 99283; J0696

== ENCOUNTER 2020-09-25 20:54 | Inpatient (IN) | payer MEDICAID ==
[~2020-09-25] VITALS: Ht 170.2 cm; Wt 68.0 kg
[2020-09-25] MEDS ORDERED: CIPROFLOXACIN 400MG/200ML 200 ML IV ONE (23:30)
[2020-09-25] MEDS ORDERED: fentaNYL CITRATE 100 MCG/2 ML VL IV ONE (23:30)
[2020-09-25] MEDS ORDERED: KETOROLAC TROMETH 30 MG/ML 1ML VIAL IV ONE (23:30)
[2020-09-26 00:20] VITALS: BP 125/78
[2020-09-26 00:28] LABS: INR 0.96 (0.9-1.15)
[2020-09-26 00:33] LABS: Albumin 3.7 g/dL (3.4-5.0); Anion Gap 7 (5-15); Blood Urea Nitrogen 11 mg/dL (7-18); Calcium 8.7 mg/dL (8.5-10.1); Carbon Dioxide 23 mmol/L (21-32); Chloride 109 mmol/L (98-107); Glucose 85 mg/dL (74-106); Potassium 4.1 mmol/L (3.5-5.1); Sodium 139 mmol/L (136-145)
[2020-09-26 00:36] LABS: BUN/Creatinine Ratio 7.6; GFR African American 67 mL/min; GFR Non-African American 55 mL/min
[2020-09-26 00:41] LABS: Alanine Aminotransferase 43 U/L (16-61); Alkaline Phosphatase 83 U/L (45-117); Aspartate Aminotransferase 26 U/L (15-37); Bilirubin, Total 0.3 mg/dL (0.2-1.0); Total Protein 7.4 g/dL (6.4-8.2)
[2020-09-26] MEDS ORDERED: NITROGLYCERIN 0.4 MG SL TAB SL PRN (01:00)
[2020-09-26] MEDS ORDERED: HYDROcodone-ACET 5/325MG TAB PO PRN (01:00)
[2020-09-26] MEDS ORDERED: ONDANSETRON HCL 4 MG/2 ML VIAL IV PRN (01:00)
[2020-09-26] MEDS ORDERED: MORPHINE SULF INJ 2 MG/ML SYRINGE 1ML IV PRN (01:00)
[2020-09-26] MEDS ORDERED: SODIUM CHLORIDE 0.9% 1,000 ML IV SCH (01:00)
[2020-09-26] MEDS ORDERED: MORPHINE SULFATE 4 MG/ML SYR/VIAL IV PRN (01:00)
[2020-09-26] MEDS ORDERED: ACETAMINOPHEN 325 MG TAB PO PRN (01:00)
[2020-09-26] MEDS ORDERED: DOCUSATE SOD 100 MG CAP PO PRN (01:00)
[2020-09-26] MEDS ORDERED: ALBUTEROL SULF 2.5 MG/0.5ML(0.5%) NEB SOLN NEB PRN (01:15)
[2020-09-26] MEDS ORDERED: IPRATROPIUM BROM 0.5 MG/2.5ML INH SOL NEB PRN (01:15)
[2020-09-26] MEDS ORDERED: ZINC SULFATE 220mg CAP or TAB PO SCH (10:00)
[2020-09-26] MEDS ORDERED: ASPirin 81 mg TAB PO SCH (10:00)
[2020-09-26] MEDS ORDERED: CARVEDILOL 3.125 MG TAB PO SCH (10:00)
[2020-09-26] MEDS ORDERED: MULTIPLE VITAMIN TAB PO SCH (10:00)
[2020-09-26] MEDS ORDERED: ASCORBIC ACID 500 MG TAB PO SCH (10:00)
[2020-09-26] MEDS ORDERED: PANTOPRAZOLE 40 MG/10 ML VIAL INJ IV SCH (10:00)
[2020-09-26] MEDS ORDERED: CIPROFLOXACIN 400MG/200ML 200 ML IV SCH (10:00)
== END 2020-09-26 02:15 | disposition left against medical advice (07) | DRG 465 ==
LOC: EDSEX 20:54 → EDBD 20:54 → ER 20:56 → TELE 20:57
PROVIDERS: ADMIT Nurse Practitioner Family; ATTEND Nurse Practitioner Family
DX: N13.2 Hydronephrosis with renal and ureteral calculous obstruction (principal); F17.210 Nicotine dependence, cigarettes, uncomplicated; F32.9 Major depressive disorder, single episode, unspecified; I25.10 Atherosclerotic heart disease of native coronary artery without angina pectoris; I25.2 Old myocardial infarction; I48.91 Unspecified atrial fibrillation; I50.9 Heart failure, unspecified; J44.9 Chronic obstructive pulmonary disease, unspecified; K57.30 Diverticulosis of large intestine without perforation or abscess without bleeding; Z83.3 Family history of diabetes mellitus; Z87.442 Personal history of urinary calculi; Z95.0 Presence of cardiac pacemaker; I11.0 Hypertensive heart disease with heart failure; Z88.1 Allergy status to other antibiotic agents; Z91.041 Radiographic dye allergy status; Z79.82 Long term (current) use of aspirin
CPT/HCPCS: 36415; 71045; 74176; 80053; 84484; 85610; 96374; G0378; J1885

== ENCOUNTER 2020-10-07 21:25 | Inpatient (IN) | payer MEDICAID ==
[~2020-10-07] VITALS: Ht 170.2 cm; Wt 73.7 kg
[2020-10-07 22:18] LABS: Basophils # (auto) 0.1 10 ^3/uL (0-0.2); Basophils % (auto) 0.5 % (0.0-2.0); Eosinophils # (auto) 0.2 10 ^3/uL (0-0.8); Eosinophils % (auto) 1.4 % (0.0-7.0); Hemoglobin 14.6 g/dL (13.5-17.5); Lymphocytes # (auto) 1.9 10 ^3/uL (0.4-5.4); Lymphocytes % (auto) 11.9 % (10.0-50.0); Mean Corpuscular Hemoglobin 31.6 pg (28.0-32.0); Mean Corpuscular Hgb Conc. 33.9 g/dL (32.0-36.0); Mean Corpuscular Volume 93.3 fL (80.0-100.0); Monocytes # (auto) 1.2 10 ^3/uL (0-1.3); Monocytes % (auto) 7.3 % (0.0-12.0); Neutrophils # (auto) 12.6 10 ^3/uL (1.6-8.6); Neutrophils % (auto) 78.9 % (37.0-80.0); Nucleated Red Blood Cells % 0.2 %; Platelet Count (auto) 320 10^3/uL (140-450); Red Blood Cells 4.61 10^6/uL (4.5-5.90); Red Cell Distribution Width 13.5 % (11.8-14.3); White Blood Cell 15.9 10^3/uL (4.4-10.8)
[2020-10-07] MEDS ORDERED: MORPHINE SULFATE 4 MG/ML SYR/VIAL ONE (22:38)
[2020-10-07 22:39] LABS: Albumin 4.2 g/dL (3.4-5.0); Calcium 9.5 mg/dL (8.5-10.1); Magnesium 2.2 mg/dL (1.6-2.6)
[2020-10-07] MEDS ORDERED: ONDANSETRON HCL 4 MG/2 ML VIAL ONE (22:39)
[2020-10-07 22:42] LABS: BUN/Creatinine Ratio 7.4; Bilirubin, Total 0.7 mg/dL (0.2-1.0); Total Protein 7.8 g/dL (6.4-8.2)
[2020-10-07] MEDS ORDERED: MORPHINE SULFATE 4 MG/ML SYR/VIAL IV ONE ×2 (22:45→23:45)
[2020-10-07] MEDS ORDERED: SODIUM CHLORIDE 0.9% 1,000 ML IV ONE ×2 (22:45→23:15)
[2020-10-07] MEDS ORDERED: ONDANSETRON HCL 4 MG/2 ML VIAL IM ONE (22:45)
[2020-10-07 23:08] LABS: INR 1.01 (0.9-1.15)
[2020-10-07] MEDS ORDERED: TAMSULOSIN HYDROCHLORIDE 0.4 MG CAP PO ONE (23:15)
[2020-10-07] MEDS ORDERED: KETOROLAC TROMETH 30 MG/ML 1ML VIAL IV ONE (23:15)
[2020-10-08 00:41] LABS: Basophils # (auto) 0 10 ^3/uL (0-0.2); Basophils % (auto) 0.1 % (0.0-2.0); Eosinophils # (auto) 0.1 10 ^3/uL (0-0.8); Eosinophils % (auto) 0.5 % (0.0-7.0); Hematocrit 41.3 % (41.0-53.0); Hemoglobin 13.9 g/dL (13.5-17.5); Lymphocytes # (auto) 1.2 10 ^3/uL (0.4-5.4); Lymphocytes % (auto) 6.1 % (10.0-50.0); Mean Corpuscular Hemoglobin 31.8 pg (28.0-32.0); Mean Corpuscular Hgb Conc. 33.6 g/dL (32.0-36.0); Mean Corpuscular Volume 94.8 fL (80.0-100.0); Monocytes # (auto) 1.3 10 ^3/uL (0-1.3); Monocytes % (auto) 6.8 % (0.0-12.0); Neutrophils # (auto) 16.3 10 ^3/uL (1.6-8.6); Neutrophils % (auto) 86.5 % (37.0-80.0); Platelet Count (auto) 304 10^3/uL (140-450); Red Blood Cells 4.36 10^6/uL (4.5-5.90); Red Cell Distribution Width 13.7 % (11.8-14.3); White Blood Cell 18.9 10^3/uL (4.4-10.8)
[2020-10-08 01:04] LABS: BUN/Creatinine Ratio 7.1; Calcium 8.9 mg/dL (8.5-10.1); Potassium 3.2 mmol/L (3.5-5.1)
[2020-10-08 02:55] LABS: Alcohol, Urine < 3.0 mg/dL (0-10); Amphetamine Screen, Urine POSITIVE (NEGATIVE); Barbiturate Scree,Urine NEGATIVE (NEGATIVE); Benzodiazephine Screen, Urine NEGATIVE (NEGATIVE); Cannabinoid Screen, Urine POSITIVE (NEGATIVE); Cocaine Screen, Urine NEGATIVE (NEGATIVE); Opiate Scree,Urine POSITIVE (NEGATIVE); Phencyclidine Screen, Urine NEGATIVE (NEGATIVE)
[2020-10-08 02:57] LABS: Urine Bacteria MOD /hpf (None Seen); Urine Blood 3+ /uL (Negative); Urine Mucus FEW (None Seen); Urine Specific Gravity 1.034 (1.001-1.035); Urine WBC 174 /hpf (0 - 3)
[2020-10-08] MEDS ORDERED: cefTRIAXone 1GM/50ML D5W 50 ML IV ONE ×2 (03:15→12:30)
[2020-10-08] MEDS ORDERED: ACETAMINOPHEN 325 MG TAB PO ONE (05:45)
[2020-10-08] MEDS ORDERED: ACETAMINOPHEN 325 MG TAB PO PRN (07:15)
[2020-10-08] MEDS ORDERED: DOCUSATE SOD 100 MG CAP PO PRN (07:15)
[2020-10-08] MEDS ORDERED: MORPHINE SULF INJ 2 MG/ML SYRINGE 1ML IV PRN (07:15)
[2020-10-08] MEDS ORDERED: POTASSIUM CHL 20 Meq TABLET PO ONE (07:15)
[2020-10-08] MEDS ORDERED: SODIUM CHLORIDE 0.9% 1,000 ML IV ONE ×2 (07:15→10:00)
[2020-10-08] MEDS ORDERED: NITROGLYCERIN 0.4 MG SL TAB SL PRN (07:15)
[2020-10-08] MEDS: MORPHINE SULFATE 4 MG/ML SYR/VIAL IV PRN ×4 (07:29→22:35)
[2020-10-08] MEDS: MULTIPLE VITAMIN TAB PO SCH (07:52)
[2020-10-08] MEDS: FAMOTIDINE 20 MG TAB PO SCH (07:52)
[2020-10-08 08:13] LABS: Albumin 3.7 g/dL (3.4-5.0); Calcium 8.7 mg/dL (8.5-10.1); Potassium 3.8 mmol/L (3.5-5.1)
[2020-10-08 08:16] LABS: BUN/Creatinine Ratio 7.3; Bilirubin, Total 0.6 mg/dL (0.2-1.0); Total Protein 7.2 g/dL (6.4-8.2)
[2020-10-08 08:17] LABS: Basophils # (auto) 0 10 ^3/uL (0-0.2); Basophils % (auto) 0.2 % (0.0-2.0); Eosinophils # (auto) 0.1 10 ^3/uL (0-0.8); Eosinophils % (auto) 0.7 % (0.0-7.0); Hematocrit 39.9 % (41.0-53.0); Hemoglobin 13.4 g/dL (13.5-17.5); Lymphocytes # (auto) 1.8 10 ^3/uL (0.4-5.4); Lymphocytes % (auto) 14.2 % (10.0-50.0); Mean Corpuscular Hemoglobin 31.9 pg (28.0-32.0); Mean Corpuscular Hgb Conc. 33.7 g/dL (32.0-36.0); Mean Corpuscular Volume 94.6 fL (80.0-100.0); Monocytes # (auto) 1.4 10 ^3/uL (0-1.3); Monocytes % (auto) 10.8 % (0.0-12.0); Neutrophils # (auto) 9.4 10 ^3/uL (1.6-8.6); Neutrophils % (auto) 74.1 % (37.0-80.0); Platelet Count (auto) 281 10^3/uL (140-450); Red Blood Cells 4.22 10^6/uL (4.5-5.90); Red Cell Distribution Width 14.1 % (11.8-14.3); White Blood Cell 12.7 10^3/uL (4.4-10.8)
[2020-10-08] MEDS ORDERED: cefTRIAXone 1GM/50ML D5W 50 ML IV SCH (09:00)
[2020-10-08] MEDS ORDERED: ZINC SULFATE 220mg CAP or TAB PO SCH (10:00)
[2020-10-08] MEDS ORDERED: MANNITOL FTV 25% 12.5 GM/50 ML 50 ML IV ONE (10:00)
[2020-10-08] MEDS ORDERED: ASCORBIC ACID 500 MG TAB PO SCH (10:00)
[2020-10-08] MEDS: SODIUM CHLORIDE 0.9% 1,000 ML IV SCH (12:48)
[2020-10-08] MEDS: SODIUM CHLOR 0.9% PF (SALINE LOCK) 10ML VIAL/SYR IV SCH ×2 (12:48→22:00)
[2020-10-08] MEDS: FUROSEMIDE 20 MG/2 ML VIAL IV SCH (17:26)
[2020-10-08] MEDS: TAMSULOSIN HYDROCHLORIDE 0.4 MG CAP PO SCH (17:26)
[2020-10-08] MEDS: ONDANSETRON HCL 4 MG/2 ML VIAL IV PRN (22:35)
[2020-10-09] MEDS: FAMOTIDINE 20 MG TAB PO SCH ×3 (01:32→22:15)
[2020-10-09] MEDS: POTASSIUM EFFERVESENT TAB 25 MEQ GT SCH ×2 (01:32→10:00)
[2020-10-09] MEDS: SODIUM CHLORIDE 0.9% 1,000 ML IV SCH ×4 (01:55→15:10)
[2020-10-09] MEDS: ONDANSETRON HCL 4 MG/2 ML VIAL IV PRN ×5 (03:29→17:25)
[2020-10-09] MEDS: MORPHINE SULFATE 4 MG/ML SYR/VIAL IV PRN ×7 (03:29→22:15)
[2020-10-09] MEDS: FUROSEMIDE 20 MG/2 ML VIAL IV SCH ×2 (06:00→18:00)
[2020-10-09] MEDS: SODIUM CHLOR 0.9% PF (SALINE LOCK) 10ML VIAL/SYR IV SCH ×3 (06:00→22:15)
[2020-10-09] MEDS: MULTIPLE VITAMIN TAB PO SCH (10:00)
[2020-10-09 10:13] LABS: Basophils # (auto) 0 10 ^3/uL (0-0.2); Basophils % (auto) 0.5 % (0.0-2.0); Eosinophils # (auto) 0.3 10 ^3/uL (0-0.8); Eosinophils % (auto) 2.9 % (0.0-7.0); Hemoglobin 13.5 g/dL (13.5-17.5); Lymphocytes # (auto) 1.8 10 ^3/uL (0.4-5.4); Lymphocytes % (auto) 17.9 % (10.0-50.0); Mean Corpuscular Hemoglobin 32.5 pg (28.0-32.0); Mean Corpuscular Hgb Conc. 34.5 g/dL (32.0-36.0); Mean Corpuscular Volume 94.2 fL (80.0-100.0); Monocytes # (auto) 0.8 10 ^3/uL (0-1.3); Monocytes % (auto) 8.3 % (0.0-12.0); Neutrophils # (auto) 7.1 10 ^3/uL (1.6-8.6); Neutrophils % (auto) 70.4 % (37.0-80.0); Nucleated Red Blood Cells % 0.2 %; Platelet Count (auto) 252 10^3/uL (140-450); Red Blood Cells 4.14 10^6/uL (4.5-5.90); Red Cell Distribution Width 13.9 % (11.8-14.3); White Blood Cell 10.2 10^3/uL (4.4-10.8)
[2020-10-09 10:29] LABS: Potassium 3.9 mmol/L (3.5-5.1)
[2020-10-09 10:38] LABS: Albumin 3.4 g/dL (3.4-5.0); BUN/Creatinine Ratio 7.9; Bilirubin, Total 0.4 mg/dL (0.2-1.0); Calcium 8.8 mg/dL (8.5-10.1); Total Protein 6.8 g/dL (6.4-8.2)
[2020-10-09] MEDS: cefTRIAXone 1GM/50ML D5W 50 ML IV SCH (13:57)
[2020-10-09] MEDS: POTASSIUM EFFERVESENT TAB 25 MEQ PO SCH ×2 (15:30→22:15)
[2020-10-09] MEDS: TAMSULOSIN HYDROCHLORIDE 0.4 MG CAP PO SCH (19:08)
[2020-10-10 07:06] LABS: Calcium 9.2 mg/dL (8.5-10.1); Potassium 3.6 mmol/L (3.5-5.1)
[2020-10-10 07:08] LABS: BUN/Creatinine Ratio 7.9
[2020-10-10] MEDS: SODIUM CHLOR 0.9% PF (SALINE LOCK) 10ML VIAL/SYR IV SCH ×3 (07:30→21:51)
[2020-10-10] MEDS: SODIUM CHLORIDE 0.9% 1,000 ML IV SCH ×5 (08:51→18:41)
[2020-10-10] MEDS: cefTRIAXone 1GM/50ML D5W 50 ML IV SCH (08:52)
[2020-10-10] MEDS: FUROSEMIDE 20 MG/2 ML VIAL IV SCH (08:52)
[2020-10-10] MEDS: ONDANSETRON HCL 4 MG/2 ML VIAL IV PRN ×3 (08:52→22:01)
[2020-10-10] MEDS: MORPHINE SULFATE 4 MG/ML SYR/VIAL IV PRN ×3 (08:52→22:01)
[2020-10-10] MEDS: MULTIPLE VITAMIN TAB PO SCH (10:00)
[2020-10-10] MEDS: POTASSIUM EFFERVESENT TAB 25 MEQ PO SCH ×2 (10:00→22:00)
[2020-10-10] MEDS: FAMOTIDINE 20 MG TAB PO SCH ×2 (10:00→22:01)
[2020-10-10] MEDS: TAMSULOSIN HYDROCHLORIDE 0.4 MG CAP PO SCH (17:27)
--- NOTE | 2020-10-10 22:35 | NUR ---
Telemetry admit from ER MARIANA HOGAN admitted to Telemetry unit after SBAR received. Patient oriented to [facility], RN primary RN, unit, room, bed, and unit policies regarding patient care and visiting hours. Patient now on continuous telemetry monitoring, tele box # 10 and telemetry reading on arrival to unit is . Patient weighed by bedscale and encouraged to call if they need something. All questions and concerns addressed, patient verbalized understanding.
[2020-10-11] VITALS (7 sets, daily range): BP systolic 113–141; BP diastolic 59–80
[2020-10-11 00:15] LABS: Basophils # (auto) 0 10 ^3/uL (0-0.2); Basophils % (auto) 0.5 % (0.0-2.0); Eosinophils # (auto) 0.3 10 ^3/uL (0-0.8); Eosinophils % (auto) 3.8 % (0.0-7.0); Hematocrit 37.4 % (41.0-53.0); Hemoglobin 12.6 g/dL (13.5-17.5); Lymphocytes # (auto) 1.4 10 ^3/uL (0.4-5.4); Lymphocytes % (auto) 20.4 % (10.0-50.0); Mean Corpuscular Hemoglobin 31.8 pg (28.0-32.0); Mean Corpuscular Hgb Conc. 33.6 g/dL (32.0-36.0); Mean Corpuscular Volume 94.7 fL (80.0-100.0); Monocytes # (auto) 0.7 10 ^3/uL (0-1.3); Monocytes % (auto) 10.4 % (0.0-12.0); Neutrophils # (auto) 4.3 10 ^3/uL (1.6-8.6); Neutrophils % (auto) 64.9 % (37.0-80.0); Platelet Count (auto) 223 10^3/uL (140-450); Red Blood Cells 3.95 10^6/uL (4.5-5.90); Red Cell Distribution Width 13.9 % (11.8-14.3); White Blood Cell 6.6 10^3/uL (4.4-10.8)
[2020-10-11 00:34] LABS: BUN/Creatinine Ratio 10.6; Blood Urea Nitrogen 13 mg/dL (7-18); Calcium 8.3 mg/dL (8.5-10.1); Carbon Dioxide 26 mmol/L (21-32); GFR African American 80 mL/min; GFR Non-African American 66 mL/min; Glucose 96 mg/dL (74-106)
[2020-10-11 01:09] LABS: Anion Gap 7 (5-15)
[2020-10-11 01:10] LABS: Chloride 106 mmol/L (98-107); Potassium 4.2 mmol/L (3.5-5.1); Sodium 139 mmol/L (136-145)
[2020-10-11] MEDS: HYDROcodone-ACET 5/325MG TAB PO PRN ×3 (01:42→21:59)
[2020-10-11] MEDS: ONDANSETRON HCL 4 MG/2 ML VIAL IV PRN (05:36)
[2020-10-11] MEDS: MORPHINE SULFATE 4 MG/ML SYR/VIAL IV PRN ×3 (05:36→19:01)
[2020-10-11] MEDS: SODIUM CHLOR 0.9% PF (SALINE LOCK) 10ML VIAL/SYR IV SCH ×3 (05:36→21:59)
[2020-10-11] MEDS: SODIUM CHLORIDE 0.9% 1,000 ML IV SCH (05:36)
--- NOTE | 2020-10-11 07:45 | NUR ---
Opening Shift Note Assumed care of patient, awake and alert. A/O X 4. No S/S of distress/SOB. Patient on room air. Complaining of right flank pain 07/01. Requesting morphine at this time. Skin is warm and dry and the Turner is in place draining. 300ML clear, yellow urine noted. Instructed on POC and to call for assist PRN. Patient verbalized understanding. Safety measures are in place and the call light is within reach of the patient. Will continue to monitor for changes Q1hr and PRN.
[2020-10-11] MEDS: FUROSEMIDE 20 MG/2 ML VIAL IV SCH (09:00)
[2020-10-11] MEDS: cefTRIAXone 1GM/50ML D5W 50 ML IV SCH (09:23)
[2020-10-11] MEDS: POTASSIUM EFFERVESENT TAB 25 MEQ PO SCH ×2 (09:25→21:59)
[2020-10-11] MEDS: MULTIPLE VITAMIN TAB PO SCH (09:25)
[2020-10-11] MEDS: FAMOTIDINE 20 MG TAB PO SCH ×2 (09:25→21:58)
--- NOTE | 2020-10-11 11:47 | NUR ---
Nutrition Assessment Notes Please refer to link for full assessment notes. Est Energy needs: 9740-6203 kcals (23-25 kcal/kgBW) Est Protein needs: 58-73 gms/day (0.8-1.0 gm/kgBW) Will continue to monitor and reassess prn. Addendum: 10/11/20 at [address] Amended: Links added.
[2020-10-11] MEDS: TAMSULOSIN HYDROCHLORIDE 0.4 MG CAP PO SCH (18:00)
--- NOTE | 2020-10-11 19:38 | NUR ---
Opening Shift Note Assumed care of patient, awake and alert. No S/S of distress/SOB or pain. Instructed on POC and to call for assist PRN, will continue to monitor for changes Q1hr and PRN.
[2020-10-12] MEDS: ONDANSETRON HCL 4 MG/2 ML VIAL IV PRN (00:38)
[2020-10-12] MEDS: MORPHINE SULFATE 4 MG/ML SYR/VIAL IV PRN (00:45)
[2020-10-12 05:00] VITALS: BP 118/69
[2020-10-12] MEDS: SODIUM CHLOR 0.9% PF (SALINE LOCK) 10ML VIAL/SYR IV SCH ×2 (05:27→14:00)
[2020-10-12 08:09] VITALS: BP 116/61
[2020-10-12 09:00] VITALS: BP 122/79
[2020-10-12] MEDS: cefTRIAXone 1GM/50ML D5W 50 ML IV SCH (09:36)
[2020-10-12] MEDS: FUROSEMIDE 20 MG/2 ML VIAL IV SCH (09:36)
[2020-10-12] MEDS: POTASSIUM EFFERVESENT TAB 25 MEQ PO SCH (09:37)
[2020-10-12] MEDS: MULTIPLE VITAMIN TAB PO SCH (09:37)
[2020-10-12] MEDS: FAMOTIDINE 20 MG TAB PO SCH (09:37)
[2020-10-12] MEDS: HYDROcodone-ACET 5/325MG TAB PO PRN (11:44)
[2020-10-12] MEDS ORDERED: DOXY-346 PO (12:41)
[2020-10-12] MEDS ORDERED: FAMO-12 PO (12:41)
[2020-10-12] MEDS ORDERED: IBUP600T27 PO (12:41)
[2020-10-12 13:00] VITALS: BP 120/87
--- NOTE | 2020-10-12 16:30 | NUR ---
Discharge instructions given as ordered. Encourage to follow up with PMD as instructed. All questions and concerns addressed. Patient verbalized understanding. Medication reconciliation form completed and copy given to patient. IV removed with catheter intact and pressure dressing applied, with gibbs catheter removed. Telemetry unit returned to ICU. Patient taken to vehicle via wheelchair with all personal belongings accompanied by staff. No distress noted at time of departure.
[2020-10-12 16:50] VITALS: BP 133/73
[2020-10-12 17:00] VITALS: BP 133/73
== END 2020-10-12 19:20 | disposition home or self-care (01) | DRG 463 ==
LOC: EDBD 21:25 → ER 21:25 → TELE 21:26 → TELE-E-ADS 10-10 22:31
PROVIDERS: ADMIT Nurse Practitioner Family; ATTEND Hospitalist
DX: N13.6 Pyonephrosis (principal); I42.9 Cardiomyopathy, unspecified; J45.901 Unspecified asthma with (acute) exacerbation; I50.9 Heart failure, unspecified; D72.829 Elevated white blood cell count, unspecified; G43.909 Migraine, unspecified, not intractable, without status migrainosus; F12.10 Cannabis abuse, uncomplicated; F15.10 Other stimulant abuse, uncomplicated; F17.210 Nicotine dependence, cigarettes, uncomplicated; F41.9 Anxiety disorder, unspecified; I11.0 Hypertensive heart disease with heart failure; I25.10 Atherosclerotic heart disease of native coronary artery without angina pectoris; J44.9 Chronic obstructive pulmonary disease, unspecified; U07.1 COVID-19; Z79.82 Long term (current) use of aspirin; Z79.899 Other long term (current) drug therapy; Z82.49 Family history of ischemic heart disease and other diseases of the circulatory system; Z87.442 Personal history of urinary calculi; Z83.3 Family history of diabetes mellitus; Z91.19 Patient's noncompliance with other medical treatment and regimen; Z95.0 Presence of cardiac pacemaker; K57.10 Diverticulosis of small intestine without perforation or abscess without bleeding; N17.9 Acute kidney failure, unspecified
CPT/HCPCS: 36415; 74018; 74176; 76775; 80048; 80053; 80307; 81001; 82150; 83735; 85025; 85610; 85730; 87040; 87086; 87426; 96361; 96365; 96372; 96375; 96376; G0378; J0696; J1885; J2405

== ENCOUNTER 2021-05-11 19:29 | Inpatient (IN) | payer MEDICAID ==
[~2021-05-11] VITALS: Ht 167.6 cm; Wt 71.8 kg
[~2021-05-11 19:29] MED LIST changes: -AMIO200T33 PO; -AMIO200T4 PO; -CARV6.2551 PO; -DIG0125T PO; -DIGO0.1238 PO; +DIGO1TAB48 PO; +DOXY-346 PO; +FAMO-12 PO; +IBUP600T27 PO; -LEVO500T21 PO
[2021-05-11] MEDS ORDERED: KETOROLAC TROMETH 30 MG/ML 1ML VIAL IV ONE (21:45)
[2021-05-11] MEDS ORDERED: HYDROmorphone HCL 2 MG/ML VL IV ONE (21:45)
[2021-05-11] MEDS ORDERED: ONDANSETRON HCL 4 MG/2 ML VIAL IV ONE (21:45)
[2021-05-11 22:34] LABS: Urine Bacteria NONE SEEN /hpf (None Seen); Urine Blood 3+ /uL (Negative); Urine Mucus FEW (None Seen); Urine Specific Gravity 1.019 (1.001-1.035); Urine WBC 109 /hpf (0 - 3)
[2021-05-11 22:47] LABS: Basophils # (auto) 0.1 10 ^3/uL (0-0.2); Basophils % (auto) 0.4 % (0.0-2.0); Eosinophils # (auto) 0.7 10 ^3/uL (0-0.8); Eosinophils % (auto) 3.9 % (0.0-7.0); Hematocrit 43.9 % (41.0-53.0); Hemoglobin 14.6 g/dL (13.5-17.5); Lymphocytes # (auto) 1.5 10 ^3/uL (0.4-5.4); Lymphocytes % (auto) 8.4 % (10.0-50.0); Mean Corpuscular Hemoglobin 31.7 pg (28.0-32.0); Mean Corpuscular Hgb Conc. 33.4 g/dL (32.0-36.0); Mean Corpuscular Volume 94.9 fL (80.0-100.0); Monocytes # (auto) 1.4 10 ^3/uL (0-1.3); Monocytes % (auto) 7.7 % (0.0-12.0); Neutrophils # (auto) 14.6 10 ^3/uL (1.6-8.6); Neutrophils % (auto) 79.6 % (37.0-80.0); Red Blood Cells 4.62 10^6/uL (4.5-5.90); Red Cell Distribution Width 13.8 % (11.8-14.3); White Blood Cell 18.4 10^3/uL (4.4-10.8)
[2021-05-11 22:58] LABS: BUN/Creatinine Ratio 17.9; Calcium 9.3 mg/dL (8.5-10.1); Potassium 5.3 mmol/L (3.5-5.1)
[2021-05-11 23:01] LABS: Bilirubin, Total 0.4 mg/dL (0.2-1.0); Total Protein 7.9 g/dL (6.4-8.2)
[2021-05-12] MEDS ORDERED: cefTRIAXone 1GM/50ML D5W 50 ML IV ONE (01:45)
[2021-05-12] MEDS ORDERED: SODIUM CHLORIDE 0.9% 1,000 ML IV ONE (01:45)
[2021-05-12] MEDS ORDERED: SODIUM ZIRCONIUM CYCL 10 GM PAK PO ONE (02:30)
[2021-05-12] MEDS ORDERED: ACETAMINOPHEN 325 MG TAB PO PRN (02:30)
[2021-05-12] MEDS ORDERED: TEMAZEPAM 15 MG CAP PO PRN (02:30)
[2021-05-12] MEDS ORDERED: ONDANSETRON HCL 4 MG/2 ML VIAL IV PRN (02:30)
[2021-05-12] MEDS ORDERED: HYDROcodone-ACET 5/325MG TAB PO PRN (02:30)
[2021-05-12] MEDS ORDERED: ALBUTEROL SULF 2.5 MG/0.5ML(0.5%) NEB SOLN NEB PRN (02:30)
[2021-05-12 03:21] VITALS: BP 104/74
[2021-05-12] MEDS: MORPHINE SULFATE 4 MG/ML SYR/VIAL IV PRN ×2 (04:44→13:54)
[2021-05-12 05:00] VITALS: BP 136/76
[2021-05-12 08:30] LABS: Calcium 8.4 mg/dL (8.5-10.1); Potassium 4.4 mmol/L (3.5-5.1)
[2021-05-12 08:31] LABS: BUN/Creatinine Ratio 19.6
[2021-05-12 09:00] VITALS: BP 122/62
[2021-05-12] MEDS: FUROSEMIDE 40 MG TAB PO SCH (09:21)
[2021-05-12] MEDS: LISINOPRIL 5 MG TAB PO SCH (09:22)
[2021-05-12] MEDS: DIGOXIN 0.125 MG TAB PO SCH (09:23)
[2021-05-12] MEDS ORDERED: PANTOPRAZOLE 40 MG TAB PO SCH (10:00)
[2021-05-12 12:40] LABS: Alcohol, Urine < 3.0 mg/dL (0-10); Amphetamine Screen, Urine POSITIVE (NEGATIVE); Barbiturate Scree,Urine NEGATIVE (NEGATIVE); Benzodiazephine Screen, Urine NEGATIVE (NEGATIVE); Cannabinoid Screen, Urine POSITIVE (NEGATIVE); Cocaine Screen, Urine NEGATIVE (NEGATIVE); Opiate Scree,Urine POSITIVE (NEGATIVE); Phencyclidine Screen, Urine NEGATIVE (NEGATIVE)
[2021-05-12 13:00] VITALS: BP 121/69
[2021-05-12] MEDS ORDERED: MANNITOL FTV 25% 12.5 GM/50 ML 50 ML IV ONE (14:45)
[2021-05-12] MEDS ORDERED: HYDR1TAB97 ×2 (14:51)
[2021-05-12] MEDS ORDERED: CEPH500C PO (14:51)
[2021-05-12] MEDS ORDERED: FURO20TA3 PO ×2 (14:51)
[2021-05-12] MEDS ORDERED: TAMSULOSIN HYDROCHLORIDE 0.4 MG CAP PO SCH (18:00)
[2021-05-12] MEDS: SUCRALFATE 1 GM/10 ML ORAL SUSP PO SCH ×2 (18:01→21:35)
[2021-05-12] MEDS ORDERED: MORPHINE SULF INJ 2 MG/ML SYRINGE 1ML IV PRN (19:30)
[2021-05-12] MEDS: PANTOPRAZOLE 40 MG TAB PO SCH (21:36)
[2021-05-12 22:00] VITALS: BP 117/69
[2021-05-12] MEDS ORDERED: cefTRIAXone 1GM/50ML D5W 50 ML IV SCH (22:00)
[2021-05-12 23:13] VITALS: BP 117/69
[2021-05-13] MEDS: MORPHINE SULF INJ 2 MG/ML SYRINGE 1ML IV PRN ×4 (02:37→15:56)
[2021-05-13 05:00] VITALS: BP 108/61
[2021-05-13 06:10] LABS: Basophils # (auto) 0.1 10 ^3/uL (0-0.2); Basophils % (auto) 0.6 % (0.0-2.0); Eosinophils # (auto) 0.6 10 ^3/uL (0-0.8); Eosinophils % (auto) 6.3 % (0.0-7.0); Hematocrit 39.5 % (41.0-53.0); Hemoglobin 13.7 g/dL (13.5-17.5); Lymphocytes # (auto) 2.3 10 ^3/uL (0.4-5.4); Lymphocytes % (auto) 24.7 % (10.0-50.0); Mean Corpuscular Hemoglobin 32.4 pg (28.0-32.0); Mean Corpuscular Hgb Conc. 34.6 g/dL (32.0-36.0); Mean Corpuscular Volume 93.8 fL (80.0-100.0); Monocytes % (auto) 10.8 % (0.0-12.0); Neutrophils # (auto) 5.3 10 ^3/uL (1.6-8.6); Neutrophils % (auto) 57.6 % (37.0-80.0); Red Blood Cells 4.21 10^6/uL (4.5-5.90); Red Cell Distribution Width 13.6 % (11.8-14.3); White Blood Cell 9.2 10^3/uL (4.4-10.8)
[2021-05-13] MEDS: SUCRALFATE 1 GM/10 ML ORAL SUSP PO SCH ×2 (06:25→11:16)
[2021-05-13 06:27] LABS: BUN/Creatinine Ratio 18.2; Calcium 8.9 mg/dL (8.5-10.1); Potassium 4.2 mmol/L (3.5-5.1)
[2021-05-13 09:01] VITALS: BP 127/72
[2021-05-13] MEDS: PANTOPRAZOLE 40 MG TAB PO SCH (09:35)
[2021-05-13] MEDS: DIGOXIN 0.125 MG TAB PO SCH (09:36)
[2021-05-13] MEDS: LISINOPRIL 5 MG TAB PO SCH (09:36)
[2021-05-13] MEDS: FUROSEMIDE 40 MG TAB PO SCH (09:37)
[2021-05-13 13:09] VITALS: BP 95/64
[2021-05-13] MEDS ORDERED: SUCR1SUS10 PO ×2 (15:08)
[2021-05-13] MEDS ORDERED: PANT40T PO ×2 (15:08)
[2021-05-13 15:27] VITALS: BP 95/64
[2021-05-13 16:25] VITALS: BP 109/69
== END 2021-05-13 16:40 | disposition home or self-care (01) | DRG 251 ==
LOC: EDBD 19:29 → ER 19:31 → OVERFLOW 05-12 02:27 → WEST WING 05-12 03:42 → TELE-WESTW 05-12 03:45 → WEST WING 05-12 05:29
PROVIDERS: ADMIT Nurse Practitioner; ATTEND Hospitalist
DX: R10.9 Unspecified abdominal pain (principal); N17.9 Acute kidney failure, unspecified; I11.0 Hypertensive heart disease with heart failure; E87.5 Hyperkalemia; I50.9 Heart failure, unspecified; N13.6 Pyonephrosis; K29.80 Duodenitis without bleeding; N13.9 Obstructive and reflux uropathy, unspecified; F12.90 Cannabis use, unspecified, uncomplicated; F15.10 Other stimulant abuse, uncomplicated; F17.210 Nicotine dependence, cigarettes, uncomplicated; I25.10 Atherosclerotic heart disease of native coronary artery without angina pectoris; Z20.822 Contact with and (suspected) exposure to COVID-19; I25.2 Old myocardial infarction; Z79.82 Long term (current) use of aspirin; Z83.3 Family history of diabetes mellitus; Z87.442 Personal history of urinary calculi; Z79.899 Other long term (current) drug therapy
CPT/HCPCS: 36415; 74176; 80048; 80053; 80061; 80307; 81001; 82150; 83690; 85025; 87081; 87426; 93005; 93306; 96365; 96375; G0378; J0696; J1885; J2405

== ENCOUNTER 2021-05-19 19:12 | Emergency (ER) | payer MEDICAID ==
[~2021-05-19] VITALS: Ht 170.2 cm; Wt 2.5 kg
[~2021-05-19 19:12] MED LIST changes: +CEPH500C PO; +FURO20TA3 PO; +HYDR1TAB97; +PANT40T PO; +SUCR1SUS10 PO
[2021-05-19] MEDS ORDERED: ONDANSETRON HCL 4 MG/2 ML VIAL IV ONE (19:30)
[2021-05-19] MEDS ORDERED: SODIUM CHLORIDE 0.9% 500 ML IVB ONE (19:30)
[2021-05-19] MEDS ORDERED: HYDROmorphone HCL 2 MG/ML VL IV ONE (19:30)
[2021-05-19 21:31] LABS: Basophils # (auto) 0.1 10 ^3/uL (0-0.2); Basophils % (auto) 0.6 % (0.0-2.0); Eosinophils # (auto) 0.1 10 ^3/uL (0-0.8); Hematocrit 40.5 % (41.0-53.0); Hemoglobin 13.9 g/dL (13.5-17.5); Lymphocytes # (auto) 1.8 10 ^3/uL (0.4-5.4); Lymphocytes % (auto) 12.7 % (10.0-50.0); Mean Corpuscular Hemoglobin 31.7 pg (28.0-32.0); Mean Corpuscular Hgb Conc. 34.3 g/dL (32.0-36.0); Mean Corpuscular Volume 92.3 fL (80.0-100.0); Monocytes # (auto) 0.8 10 ^3/uL (0-1.3); Monocytes % (auto) 5.6 % (0.0-12.0); Neutrophils # (auto) 11.1 10 ^3/uL (1.6-8.6); Neutrophils % (auto) 80.1 % (37.0-80.0); Red Blood Cells 4.39 10^6/uL (4.5-5.90); Red Cell Distribution Width 13.2 % (11.8-14.3); White Blood Cell 13.9 10^3/uL (4.4-10.8)
[2021-05-19 21:44] LABS: Albumin 4.1 g/dL (3.4-5.0); Calcium 9.8 mg/dL (8.5-10.1); Magnesium 2.3 mg/dL (1.6-2.6); Potassium 3.8 mmol/L (3.5-5.1)
[2021-05-19 21:49] LABS: BUN/Creatinine Ratio 15.8; Bilirubin, Total 0.3 mg/dL (0.2-1.0); Total Protein 8.2 g/dL (6.4-8.2)
[2021-05-20 00:05] LABS: Urine Bacteria NONE SEEN /hpf (None Seen); Urine Blood 2+ /uL (Negative); Urine Hyaline Cast FEW /lpf (0 - 2); Urine Specific Gravity 1.013 (1.001-1.035); Urine WBC 8 /hpf (0 - 3); Urine WBC Clumps PRESENT /hpf (None Seen)
[2021-05-20 00:15] LABS: Alcohol, Urine < 3.0 mg/dL (0-10); Amphetamine Screen, Urine POSITIVE (NEGATIVE); Barbiturate Scree,Urine NEGATIVE (NEGATIVE); Benzodiazephine Screen, Urine NEGATIVE (NEGATIVE); Cannabinoid Screen, Urine POSITIVE (NEGATIVE); Cocaine Screen, Urine NEGATIVE (NEGATIVE); Opiate Scree,Urine NEGATIVE (NEGATIVE); Phencyclidine Screen, Urine NEGATIVE (NEGATIVE)
[2021-05-20] MEDS ORDERED: IOHEXOL 350 MG/ML 100ML IJ ONE (02:14)
[2021-05-20 06:30] VITALS: BP 128/68
== END 2021-05-20 07:11 | disposition home or self-care (01) ==
LOC: EDUNIT# 19:12 → EDBD 19:12 → ER 19:12
DX: R10.84 Generalized abdominal pain (principal); R11.2 Nausea with vomiting, unspecified; I11.0 Hypertensive heart disease with heart failure; I25.10 Atherosclerotic heart disease of native coronary artery without angina pectoris; I50.9 Heart failure, unspecified; I25.2 Old myocardial infarction; F17.210 Nicotine dependence, cigarettes, uncomplicated; Z79.82 Long term (current) use of aspirin; Z79.2 Long term (current) use of antibiotics; Z79.899 Other long term (current) drug therapy; Z79.1 Long term (current) use of non-steroidal anti-inflammatories (NSAID); Z88.1 Allergy status to other antibiotic agents; Z88.8 Allergy status to other drugs, medicaments and biological substances
CPT/HCPCS: 36415; 71045; 71275; 74176; 80053; 80307; 81001; 82150; 83690; 83735; 83880; 85025; 96361; 96374; 96375; 99285; J1170; J2405; J7040; Q9967

== ENCOUNTER 2021-06-17 14:38 | Inpatient (IN) | payer MEDICAID ==
[~2021-06-17] VITALS: Ht 167.6 cm; Wt 68.0 kg
[~2021-06-17 14:38] MED LIST changes: -ALB5IS NEB; -ASPI81CH43 PO; -CEPH500C PO; -DOXY-346 PO; -FAMO-12 PO; -FURO40TA4 PO; -IPR002IS NEB; -NEBUMIS40 XX; -POTA-220 PO
[2021-06-17 15:39] LABS: Hematocrit 30.6 % (41.0-53.0); Hemoglobin 10.4 g/dL (13.5-17.5); Mean Corpuscular Hemoglobin 31.4 pg (28.0-32.0); Mean Corpuscular Volume 92.4 fL (80.0-100.0); Red Blood Cells 3.31 10^6/uL (4.5-5.90); Red Cell Distribution Width 13.8 % (11.8-14.3); White Blood Cell 18.8 10^3/uL (4.4-10.8)
[2021-06-17 15:55] LABS: Basophils % (manual) 0 (0.0-2.0); Blast Cells 0; Eosinophils % (manual) 0 (0-7); Metamyelocytes % 0; Myelocytes % 0; Promyelocytes % 0; Reactive Lymphocytes 0
[2021-06-17 15:56] LABS: Albumin 2.3 g/dL (3.4-5.0); Anion Gap 10 (5-15); Blood Urea Nitrogen 34 mg/dL (7-18); Calcium 9.3 mg/dL (8.5-10.1); Carbon Dioxide 19 mmol/L (21-32); Chloride 108 mmol/L (98-107); Glucose 134 mg/dL (74-106); Lipase 257 U/L (73-393); Magnesium 2.4 mg/dL (1.6-2.6); Potassium 3.5 mmol/L (3.5-5.1); Sodium 137 mmol/L (136-145)
[2021-06-17 16:02] LABS: Alanine Aminotransferase 109 U/L (16-61); Alkaline Phosphatase 270 U/L (45-117); Aspartate Aminotransferase 100 U/L (15-37); BUN/Creatinine Ratio 18.1; Bilirubin, Total 1.2 mg/dL (0.2-1.0); GFR African American 49 mL/min; GFR Non-African American 40 mL/min; Total Protein 7.1 g/dL (6.4-8.2)
[2021-06-17 16:37] LABS: Band Neutrophils % (manual) 5; Lymphocytes % (manual) 8 (10.0-50.0); Monocytes % (manual) 10 (0-12)
[2021-06-17] MEDS ORDERED: cefTRIAXone 1GM/50ML D5W 50 ML IV ONE (17:15)
[2021-06-17 21:28] LABS: Urine Bacteria FEW /hpf (None Seen); Urine Blood 1+ /uL (Negative); Urine Specific Gravity 1.015 (1.001-1.035); Urine WBC 28 /hpf (0 - 3)
[2021-06-17] MEDS ORDERED: DOCUSATE SOD 100 MG CAP PO PRN (23:00)
[2021-06-17] MEDS ORDERED: NITROGLYCERIN 0.4 MG SL TAB SL PRN (23:00)
[2021-06-17] MEDS: SODIUM CHLOR 0.9% PF (SALINE LOCK) 10ML VIAL/SYR IV SCH (23:37)
[2021-06-18] MEDS: HYDROcodone-ACET 5/325MG TAB PO PRN ×2 (00:09→09:29)
[2021-06-18] MEDS: MORPHINE SULFATE INJECTION 2 MG/ML SYRG IV PRN ×2 (00:09→15:21)
[2021-06-18] MEDS: ONDANSETRON HCL 4 MG/2 ML VIAL IV PRN ×2 (00:09→20:38)
[2021-06-18] MEDS ORDERED: POTASSIUM CHL 20 Meq TABLET PO ONE (00:15)
[2021-06-18 05:25] LABS: Potassium 3.2 mmol/L (3.5-5.1)
[2021-06-18 05:33] LABS: BUN/Creatinine Ratio 18.6; Bilirubin, Total 1.2 mg/dL (0.2-1.0); Calcium 8.9 mg/dL (8.5-10.1); Total Protein 6.2 g/dL (6.4-8.2)
[2021-06-18 05:35] LABS: Hematocrit 28.5 % (41.0-53.0); Hemoglobin 9.9 g/dL (13.5-17.5); Mean Corpuscular Hgb Conc. 34.6 g/dL (32.0-36.0); Mean Corpuscular Volume 92.5 fL (80.0-100.0); Red Blood Cells 3.08 10^6/uL (4.5-5.90); Red Cell Distribution Width 13.8 % (11.8-14.3); White Blood Cell 16.9 10^3/uL (4.4-10.8)
[2021-06-18 05:42] LABS: Basophils % (manual) 0 (0.0-2.0); Blast Cells 0; Metamyelocytes % 0; Myelocytes % 0; Promyelocytes % 0; Reactive Lymphocytes 0
[2021-06-18 06:08] LABS: Eosinophils % (manual) 2 (0-7); Lymphocytes % (manual) 8 (10.0-50.0)
[2021-06-18 06:09] LABS: Band Neutrophils % (manual) 17; Monocytes % (manual) 14 (0-12)
[2021-06-18] MEDS: ACETAMINOPHEN 325 MG TAB PO PRN ×2 (06:34→18:31)
[2021-06-18] MEDS: FAMOTIDINE (10MG/ML) 2ML VL IV SCH ×2 (09:19→22:43)
[2021-06-18] MEDS: cefTRIAXone 1GM/50ML D5W 50 ML IV SCH (09:19)
[2021-06-18] MEDS: MULTIPLE VITAMIN TAB PO SCH (09:20)
[2021-06-18] MEDS ORDERED: ZINC SULFATE 220mg CAP or TAB PO SCH (10:00)
[2021-06-18] MEDS ORDERED: ASCORBIC ACID 500 MG TAB PO SCH (10:00)
[2021-06-18] MEDS ORDERED: HEPARIN SODIUM (PORCINE) 5000 UNITS/ML 1ML VIAL SC SCH (10:00)
[2021-06-18] MEDS: SODIUM CHLOR 0.9% PF (SALINE LOCK) 10ML VIAL/SYR IV SCH ×2 (14:46→22:00)
[2021-06-18] MEDS ORDERED: POTASSIUM EFFERVESENT TAB 25 MEQ PO ONE (18:15)
[2021-06-18] MEDS ORDERED: MORPHINE SULFATE 4 MG/ML SYR/VIAL IV ONE (20:30)
[2021-06-18] MEDS: CARVEDILOL 3.125 MG TAB PO SCH (22:42)
[2021-06-19] MEDS: MORPHINE SULFATE INJECTION 2 MG/ML SYRG IV PRN ×3 (01:06→13:27)
[2021-06-19] MEDS: ONDANSETRON HCL 4 MG/2 ML VIAL IV PRN ×2 (02:29→10:09)
[2021-06-19 04:10] LABS: Hematocrit 29.7 % (41.0-53.0); Hemoglobin 10.2 g/dL (13.5-17.5); Mean Corpuscular Hemoglobin 31.8 pg (28.0-32.0); Mean Corpuscular Hgb Conc. 34.3 g/dL (32.0-36.0); Mean Corpuscular Volume 92.7 fL (80.0-100.0); Red Cell Distribution Width 13.7 % (11.8-14.3); White Blood Cell 12.7 10^3/uL (4.4-10.8)
[2021-06-19 04:26] LABS: Basophils % (manual) 0 (0.0-2.0); Blast Cells 0; Myelocytes % 0; Promyelocytes % 0; Reactive Lymphocytes 0
[2021-06-19 04:39] LABS: BUN/Creatinine Ratio 16.5; Calcium 8.7 mg/dL (8.5-10.1); Potassium 3.8 mmol/L (3.5-5.1)
[2021-06-19] MEDS: HYDROcodone-ACET 5/325MG TAB PO PRN (05:01)
[2021-06-19] MEDS: SODIUM CHLOR 0.9% PF (SALINE LOCK) 10ML VIAL/SYR IV SCH ×2 (06:00→13:27)
[2021-06-19 06:47] LABS: Band Neutrophils % (manual) 18; Eosinophils % (manual) 1 (0-7); Metamyelocytes % 2
[2021-06-19 06:50] LABS: Lymphocytes % (manual) 12 (10.0-50.0); Monocytes % (manual) 11 (0-12)
[2021-06-19] MEDS: FAMOTIDINE (10MG/ML) 2ML VL IV SCH (09:25)
[2021-06-19] MEDS: cefTRIAXone 1GM/50ML D5W 50 ML IV SCH (09:25)
[2021-06-19] MEDS: CARVEDILOL 3.125 MG TAB PO SCH (09:25)
[2021-06-19] MEDS: MULTIPLE VITAMIN TAB PO SCH (09:31)
[2021-06-19 11:00] VITALS: BP 123/74
[2021-06-19] MEDS ORDERED: CEPH500T PO (14:19)
[2021-06-19] MEDS ORDERED: HYDR-4902 PO (14:19)
== END 2021-06-19 15:43 | disposition home health service (06) | DRG 720 ==
LOC: EDBD 14:38 → ER 14:38 → OVERFLOW 22:56
PROVIDERS: ADMIT Nurse Practitioner Family; ATTEND Nurse Practitioner Family
DX: A41.9 Sepsis, unspecified organism (principal); N17.9 Acute kidney failure, unspecified; E88.09 Other disorders of plasma-protein metabolism, not elsewhere classified; K76.0 Fatty (change of) liver, not elsewhere classified; I50.9 Heart failure, unspecified; I13.0 Hypertensive heart and chronic kidney disease with heart failure and stage 1 through stage 4 chronic kidney disease, or unspecified chronic kidney disease; N18.9 Chronic kidney disease, unspecified; Z20.822 Contact with and (suspected) exposure to COVID-19; I25.10 Atherosclerotic heart disease of native coronary artery without angina pectoris; K21.9 Gastro-esophageal reflux disease without esophagitis; Z79.899 Other long term (current) drug therapy; Z88.8 Allergy status to other drugs, medicaments and biological substances; Z93.6 Other artificial openings of urinary tract status; I25.2 Old myocardial infarction; F12.90 Cannabis use, unspecified, uncomplicated; F17.210 Nicotine dependence, cigarettes, uncomplicated; N13.6 Pyonephrosis
CPT/HCPCS: 36415; 71045; 74176; 80048; 80053; 81001; 83036; 83690; 83735; 84484; 85007; 85027; 87086; 87426; 93005; 96365; 96366; 96372; 96375; 96376; G0378; J0696; J2405; J3490

== ENCOUNTER 2021-09-10 02:02 | Emergency (ER) | payer MEDICAID ==
[~2021-09-10] VITALS: Ht 170.2 cm; Wt 72.6 kg
[~2021-09-10 02:02] MED LIST changes: +CEPH500T PO; +HYDR-4902 PO
[2021-09-10] MEDS ORDERED: traMADol HCL 50 MG TAB PO ONE (04:45)
[2021-09-10 05:30] VITALS: BP 138/87
== END 2021-09-10 05:30 | disposition home or self-care (01) ==
LOC: ER 02:02
DX: T83.022A Displacement of nephrostomy catheter, initial encounter (principal); I11.0 Hypertensive heart disease with heart failure; I50.9 Heart failure, unspecified; I25.10 Atherosclerotic heart disease of native coronary artery without angina pectoris; I25.2 Old myocardial infarction; F17.210 Nicotine dependence, cigarettes, uncomplicated; Z79.899 Other long term (current) drug therapy; Z79.1 Long term (current) use of non-steroidal anti-inflammatories (NSAID); Z88.1 Allergy status to other antibiotic agents; Z88.8 Allergy status to other drugs, medicaments and biological substances
CPT/HCPCS: 74176

== ENCOUNTER 2021-09-10 22:40 | Emergency (ER) | payer MEDICAID ==
[~2021-09-10] VITALS: Ht 170.2 cm; Wt 72.6 kg
[2021-09-10 22:56] VITALS: BP 132/94
== END 2021-09-11 04:30 | disposition home or self-care (01) ==
LOC: ER 22:40
DX: T83.092A Other mechanical complication of nephrostomy catheter, initial encounter (principal); I11.0 Hypertensive heart disease with heart failure; I50.9 Heart failure, unspecified; F17.210 Nicotine dependence, cigarettes, uncomplicated; Z87.442 Personal history of urinary calculi; Z88.1 Allergy status to other antibiotic agents

== ENCOUNTER 2021-10-04 02:37 | Emergency (ER) | payer MEDICAID ==
[~2021-10-04] VITALS: Ht 167.6 cm; Wt 79.4 kg
[2021-10-04 04:05] LABS: Basophils # (auto) 0.1 10 ^3/uL (0-0.2); Basophils % (auto) 0.5 % (0.0-2.0); Eosinophils # (auto) 0.8 10 ^3/uL (0-0.8); Eosinophils % (auto) 6.5 % (0.0-7.0); Hematocrit 38.7 % (41.0-53.0); Hemoglobin 12.9 g/dL (13.5-17.5); Lymphocytes % (auto) 15.4 % (10.0-50.0); Mean Corpuscular Hemoglobin 29.1 pg (28.0-32.0); Mean Corpuscular Hgb Conc. 33.5 g/dL (32.0-36.0); Mean Corpuscular Volume 87.1 fL (80.0-100.0); Monocytes # (auto) 1.4 10 ^3/uL (0-1.3); Monocytes % (auto) 10.8 % (0.0-12.0); Neutrophils # (auto) 8.5 10 ^3/uL (1.6-8.6); Neutrophils % (auto) 66.8 % (37.0-80.0); Red Blood Cells 4.44 10^6/uL (4.5-5.90); White Blood Cell 12.8 10^3/uL (4.4-10.8)
[2021-10-04 04:17] VITALS: BP 160/97
[2021-10-04 04:23] LABS: Albumin 3.3 g/dL (3.4-5.0); Calcium 9.5 mg/dL (8.5-10.1); Potassium 3.6 mmol/L (3.5-5.1)
[2021-10-04 04:29] LABS: BUN/Creatinine Ratio 8.8; Bilirubin, Total 0.4 mg/dL (0.2-1.0); Total Protein 7.5 g/dL (6.4-8.2)
== END 2021-10-04 07:05 | disposition left against medical advice (07) ==
LOC: EDBD 02:37 → ER 02:37
DX: R10.31 Right lower quadrant pain (principal); R11.2 Nausea with vomiting, unspecified; I25.10 Atherosclerotic heart disease of native coronary artery without angina pectoris; I25.2 Old myocardial infarction; I11.0 Hypertensive heart disease with heart failure; I50.9 Heart failure, unspecified; F17.210 Nicotine dependence, cigarettes, uncomplicated; Z79.1 Long term (current) use of non-steroidal anti-inflammatories (NSAID); Z79.899 Other long term (current) drug therapy; Z88.1 Allergy status to other antibiotic agents; Z88.8 Allergy status to other drugs, medicaments and biological substances
CPT/HCPCS: 36415; 80053; 80320; 83690; 84484; 85025; 93005

== ENCOUNTER 2022-04-21 11:21 | Day surgery (SDC) | payer MEDICAID ==
[~2022-04-21] VITALS: Ht 170.2 cm; Wt 74.8 kg
[~2022-04-21 11:21] MED LIST changes: -CAR3125T PO; +CARV3.1240 PO; -CEPH500T PO; +DIGO0.12 PO; -DIGO1TAB48 PO; -FURO20TA3 PO; -HYDR-4902 PO; -HYDR1TAB97; -LISI-275 PO; +LISI2.5T47 PO; +NITR0.4S29 SL; -PANT40T PO; -SUCR1SUS10 PO
[2022-04-21] MEDS ORDERED: ANGIOMAX 250 MG VIAL IV ONE (12:42)
[2022-04-21] MEDS ORDERED: fentaNYL CITRATE 100 MCG/2 ML VL ONE (12:42)
[2022-04-21] MEDS ORDERED: SODIUM CHL 0.9% 0 ML ONE (12:42)
[2022-04-21] MEDS ORDERED: MIDAZOLAM HCL 2MG/2ML 2ml VIAL (1mg/ml) ONE (12:42)
[2022-04-21] MEDS ORDERED: diphenhdrAMINE HCL 50 MG/1 ML VL ONE (12:47)
[2022-04-21] MEDS ORDERED: methylPREDNISolone SOD SUCC 125 MG/2 ML VL ONE (12:47)
[2022-04-21] MEDS ORDERED: FAMOTIDINE (10MG/ML) 2ML VL IV ONE (12:48)
[2022-04-21] MEDS ORDERED: IOHEXOL 350 MG/ML 100ML IJ ONE (12:50)
[2022-04-21] MEDS ORDERED: LIDOCAINE 2%HCL (LOCAL ANESTH.) INJ 10ml MDV ONE (12:50)
== END 2022-04-21 16:04 | disposition home or self-care (01) ==
LOC: CATH 11:21
PROVIDERS: ATTEND Internal Medicine
DX: R94.39 Abnormal result of other cardiovascular function study (principal); I42.8 Other cardiomyopathies; I11.0 Hypertensive heart disease with heart failure; I50.9 Heart failure, unspecified; I07.1 Rheumatic tricuspid insufficiency; Z95.810 Presence of automatic (implantable) cardiac defibrillator; F15.10 Other stimulant abuse, uncomplicated; J44.9 Chronic obstructive pulmonary disease, unspecified; G47.30 Sleep apnea, unspecified; F41.9 Anxiety disorder, unspecified; F32.A Depression, unspecified; F17.200 Nicotine dependence, unspecified, uncomplicated; Z82.49 Family history of ischemic heart disease and other diseases of the circulatory system; Z88.1 Allergy status to other antibiotic agents; Z83.3 Family history of diabetes mellitus; Z20.822 Contact with and (suspected) exposure to COVID-19
CPT/HCPCS: 93458; C1760; C1894; J1200; J1644; J2001; J2250; J2930; J3010; J3490; J7040; Q9967; U0003; 99152

== ENCOUNTER 2022-04-23 19:09 | Emergency (ER) | payer MEDICAID | END 2022-04-23 20:06 | disposition home or self-care (01) | LOC: ER 19:09 | DX: S70.11XA Contusion of right thigh, initial encounter (principal); I11.0 Hypertensive heart disease with heart failure; I50.9 Heart failure, unspecified; F17.210 Nicotine dependence, cigarettes, uncomplicated; Z87.442 Personal history of urinary calculi; Z88.1 Allergy status to other antibiotic agents; X58.XXXA Exposure to other specified factors, initial encounter; Y93.89 Activity, other specified; Y92.89 Other specified places as the place of occurrence of the external cause; Y99.8 Other external cause status ==

== ENCOUNTER 2022-04-26 03:44 | Emergency (ER) | payer MEDICAID ==
[~2022-04-26] VITALS: Ht 170.2 cm; Wt 72.6 kg
[2022-04-26] MEDS ORDERED: FAMOTIDINE (10MG/ML) 2ML VL IV ONE (07:30)
[2022-04-26] MEDS ORDERED: DexAMETHasone SOD PHOS 10MG/1ML VIAL INJ IV ONE (07:30)
[2022-04-26] MEDS ORDERED: diphenhdrAMINE HCL 50 MG/1 ML VL IV ONE (07:30)
[2022-04-26 08:07] LABS: Calcium 9.4 mg/dL (8.5-10.1); Potassium 3.3 mmol/L (3.5-5.1)
[2022-04-26 08:12] LABS: Bilirubin, Total 0.3 mg/dL (0.2-1.0); Total Protein 7.5 g/dL (6.4-8.2)
[2022-04-26 08:24] LABS: Basophils # (auto) 0 10 ^3/uL (0-0.2); Basophils % (auto) 0.5 % (0.0-2.0); Eosinophils # (auto) 0.7 10 ^3/uL (0-0.8); Eosinophils % (auto) 7.6 % (0.0-7.0); Hematocrit 40.6 % (41.0-53.0); Lymphocytes # (auto) 2.6 10 ^3/uL (0.4-5.4); Lymphocytes % (auto) 26.9 % (10.0-50.0); Mean Corpuscular Hemoglobin 31.7 pg (28.0-32.0); Mean Corpuscular Hgb Conc. 34.5 g/dL (32.0-36.0); Mean Corpuscular Volume 91.9 fL (80.0-100.0); Monocytes # (auto) 0.8 10 ^3/uL (0-1.3); Monocytes % (auto) 8.4 % (0.0-12.0); Neutrophils # (auto) 5.5 10 ^3/uL (1.6-8.6); Neutrophils % (auto) 56.6 % (37.0-80.0); Nucleated Red Blood Cells % 0.1 %; Red Blood Cells 4.42 10^6/uL (4.5-5.90); Red Cell Distribution Width 14.8 % (11.8-14.3); White Blood Cell 9.8 10^3/uL (4.4-10.8)
[2022-04-26] MEDS ORDERED: CYCLOBENZAPRINE HCL 10 MG TAB PO ONE (08:30)
[2022-04-26] MEDS ORDERED: IOHEXOL 350 MG/ML 100ML IJ ONE (10:18)
[2022-04-26 19:15] VITALS: BP 136/79
== END 2022-04-26 19:35 | disposition home or self-care (01) ==
LOC: ER 03:54
DX: M54.2 Cervicalgia (principal); M62.838 Other muscle spasm; S70.11XD Contusion of right thigh, subsequent encounter; I11.0 Hypertensive heart disease with heart failure; I50.9 Heart failure, unspecified; Z88.1 Allergy status to other antibiotic agents; X58.XXXD Exposure to other specified factors, subsequent encounter
CPT/HCPCS: 36415; 71045; 73706; 80053; 84484; 85025; 87426; 93005; 93926; 93971; 96374; 96375; 99285; J1100; J1200; J3490; Q9967

== ENCOUNTER 2022-06-22 04:42 | Emergency (ER) | payer MEDICAID ==
[~2022-06-22] VITALS: Ht 170.2 cm; Wt 79.1 kg
[2022-06-22 04:43] VITALS: BP 142/98
== END 2022-06-22 08:49 | disposition left against medical advice (07) ==
LOC: ER 04:42
DX: M79.10 Myalgia, unspecified site (principal); F15.10 Other stimulant abuse, uncomplicated; I11.0 Hypertensive heart disease with heart failure; I50.9 Heart failure, unspecified; I25.2 Old myocardial infarction; I25.10 Atherosclerotic heart disease of native coronary artery without angina pectoris; F12.10 Cannabis abuse, uncomplicated; F17.210 Nicotine dependence, cigarettes, uncomplicated; Z79.1 Long term (current) use of non-steroidal anti-inflammatories (NSAID); Z79.899 Other long term (current) drug therapy; Z88.1 Allergy status to other antibiotic agents; Z91.041 Radiographic dye allergy status
CPT/HCPCS: 70450; 93005

== ENCOUNTER 2022-09-28 17:14 | Emergency (ER) | payer MEDICAID ==
[~2022-09-28] VITALS: Ht 170.2 cm; Wt 80.0 kg
[2022-09-28 17:22] VITALS: BP 149/102
[2022-09-28 18:14] LABS: Basophils # (auto) 0.1 10 ^3/uL (0-0.2); Eosinophils # (auto) 0.5 10 ^3/uL (0-0.8); Eosinophils % (auto) 7.5 % (0.0-7.0); Hematocrit 42.8 % (41.0-53.0); Hemoglobin 14.4 g/dL (13.5-17.5); Lymphocytes # (auto) 0.8 10 ^3/uL (0.4-5.4); Mean Corpuscular Hemoglobin 31.5 pg (28.0-32.0); Mean Corpuscular Hgb Conc. 33.7 g/dL (32.0-36.0); Mean Corpuscular Volume 93.3 fL (80.0-100.0); Monocytes # (auto) 1.1 10 ^3/uL (0-1.3); Monocytes % (auto) 15.5 % (0.0-12.0); Neutrophils # (auto) 4.7 10 ^3/uL (1.6-8.6); Red Blood Cells 4.59 10^6/uL (4.5-5.90); Red Cell Distribution Width 13.5 % (11.8-14.3); White Blood Cell 7.2 10^3/uL (4.4-10.8)
[2022-09-28 18:24] LABS: Albumin 3.9 g/dL (3.4-5.0); Calcium 8.5 mg/dL (8.5-10.1)
[2022-09-28 18:29] LABS: BUN/Creatinine Ratio 8.3; Bilirubin, Total 0.4 mg/dL (0.2-1.0); Total Protein 6.8 g/dL (6.4-8.2)
[2022-09-28] MEDS ORDERED: ACETAMINOPHEN 500 MG TAB PO ONE (18:30)
[2022-09-28 18:32] LABS: Potassium 4.3 mmol/L (3.5-5.1)
[2022-09-28] MEDS ORDERED: LORA-664 PO (22:05)
[2022-09-28] MEDS ORDERED: BENZ100C19 PO (22:05)
[2022-09-28] MEDS ORDERED: ACET-1158 PO (22:05)
== END 2022-09-28 21:07 | disposition left against medical advice (07) ==
LOC: ER 17:14
DX: J06.9 Acute upper respiratory infection, unspecified (principal); B97.89 Other viral agents as the cause of diseases classified elsewhere; I25.10 Atherosclerotic heart disease of native coronary artery without angina pectoris; I11.0 Hypertensive heart disease with heart failure; I50.9 Heart failure, unspecified; Z87.442 Personal history of urinary calculi; F17.210 Nicotine dependence, cigarettes, uncomplicated; F12.90 Cannabis use, unspecified, uncomplicated; F15.90 Other stimulant use, unspecified, uncomplicated; Z88.8 Allergy status to other drugs, medicaments and biological substances; Z91.040 Latex allergy status; Z79.899 Other long term (current) drug therapy; Z20.822 Contact with and (suspected) exposure to COVID-19
CPT/HCPCS: 36415; 80053; 83880; 85025; 87426; 87804

== ENCOUNTER 2023-10-01 04:41 | Emergency (ER) | payer MEDICAID ==
[~2023-10-01] VITALS: Ht 170.2 cm; Wt 82.7 kg
[~2023-10-01 04:41] MED LIST changes: +ACET500T58 PO; +BENZ100C19 PO; +IBUP-1454 PO; -IBUP600T27 PO; +LORA-1130 PO
[2023-10-01 05:24] VITALS: PULSE 118; RESP 22; O2SAT 95
[2023-10-01 05:54] LABS: Basophils % (auto) 0.4 % (0.0-2.0); Eosinophils % (auto) 3.4 % (0.0-7.0); Lymphocytes % (auto) 18.8 % (10.0-50.0); Monocytes % (auto) 11.7 % (0.0-12.0); Neutrophils % (auto) 65.7 % (37.0-80.0); Nucleated Red Blood Cells % 0.2 %; White Blood Cell 7.5 10^3/uL (4.4-10.8)
[2023-10-01 05:55] LABS: Basophils # (auto) 0 10 ^3/uL (0-0.2); Eosinophils # (auto) 0.3 10 ^3/uL (0-0.8); Hematocrit 38.4 % (41.0-53.0); Hemoglobin 13.1 g/dL (13.5-17.5); Lymphocytes # (auto) 1.4 10 ^3/uL (0.4-5.4); Mean Corpuscular Hemoglobin 32.1 pg (28.0-32.0); Mean Corpuscular Hgb Conc. 34.1 g/dL (32.0-36.0); Mean Corpuscular Volume 94.2 fL (80.0-100.0); Monocytes # (auto) 0.9 10 ^3/uL (0-1.3); Red Blood Cells 4.08 10^6/uL (4.5-5.90); Red Cell Distribution Width 13.8 % (11.8-14.3)
[2023-10-01] MEDS ORDERED: ALBUTEROL SULF HFA 90MCG INH 200DOSE IN SCH (06:00)
[2023-10-01 06:02] LABS: Alanine Aminotransferase 61 U/L (7-40); Albumin 4.3 g/dL (3.2-4.8); Alkaline Phosphatase 82 U/L (46-116); Anion Gap 10 (5-15); Aspartate Aminotransferase 40 U/L (13-40); BUN/Creatinine Ratio 11.5 (10.0-20.0); Blood Urea Nitrogen 15 mg/dL (9-23); Calcium 9.1 mg/dL (8.5-10.1); Carbon Dioxide 22 mmol/L (20-30); Chloride 103 mmol/L (98-107); Glucose 100 mg/dL (74-106); Potassium 4.2 mmol/L (3.5-5.1); Sodium 135 mmol/L (136-145)
[2023-10-01 06:03] LABS: Bilirubin, Total 0.6 mg/dL (0.2-1.0); Total Protein 6.7 g/dL (5.7-8.2)
[2023-10-01 06:39] LABS: INR 1.05 (0.9-1.15); Partial Thromboplastin Time 30.8 SEC (24.5-34.5)
[2023-10-01] MEDS ORDERED: methylPREDNISolone SOD SUCC 125 MG/2 ML VL IV ONE (07:00)
[2023-10-01] MEDS ORDERED: ALBUTEROL SULF 2.5 MG/0.5ML(0.5%) NEB SOLN NEB ONE (07:15)
[2023-10-01] MEDS ORDERED: IPRATROPIUM BROM 0.5 MG/2.5ML INH SOL NEB ONE (07:15)
[2023-10-01] MEDS ORDERED: ASPirin 81 mg TAB PO ONE (07:15)
[2023-10-01 07:40] VITALS: O2SAT 96
[2023-10-01 07:43] LABS: Magnesium 2.1 mg/dL (1.6-2.6)
[2023-10-01 08:23] LABS: Base Excess 1.8 mmol/L (-2.0-2.0)
[2023-10-01] MEDS ORDERED: ACETAMINOPHEN/CODEINE#3 (300/30mg) TAB PO ONE (08:45)
[2023-10-01 09:10] LABS: Rapid Influenza A Negative (Negative); Rapid Influenza B Negative (Negative)
[2023-10-01 09:11] LABS: COVID19 ANTIGEN SOFIA FIA NEGATIVE (NEGATIVE)
[2023-10-01 10:58] VITALS: TEMP 98.9
[2023-10-01] MEDS ORDERED: DOXYCYCLINE 100MG/250ML 250 ML IV ONE (11:00)
[2023-10-01 13:00] VITALS: BP 101/67; PULSE 101; RESP 24; O2SAT 95
[2023-10-01] MEDS ORDERED: ALBUAER3 IN (14:39)
[2023-10-01] MEDS ORDERED: PRED20TA2 PO (14:39)
[2023-10-01] MEDS ORDERED: ALBU0.084 NEB (14:39)
[2023-10-01] MEDS ORDERED: BENZ100C97 PO (14:46)
== END 2023-10-01 15:15 | disposition home or self-care (01) ==
LOC: ER 04:41
DX: R07.89 Other chest pain (principal); R06.00 Dyspnea, unspecified; R79.89 Other specified abnormal findings of blood chemistry; I50.9 Heart failure, unspecified; J44.9 Chronic obstructive pulmonary disease, unspecified; Z87.891 Personal history of nicotine dependence; Z79.1 Long term (current) use of non-steroidal anti-inflammatories (NSAID); Z79.899 Other long term (current) drug therapy; Z88.1 Allergy status to other antibiotic agents; Z91.041 Radiographic dye allergy status; Z20.822 Contact with and (suspected) exposure to COVID-19
CPT/HCPCS: 36415; 36600; 71045; 76705; 80053; 82805; 83605; 83690; 83735; 83880; 84484; 85025; 85379; 85610; 85730; 86850; 86900; 86901; 87040; 87426; 87804; 93005; 94640; 96365; 96366; 96375; 99285; J2930; J3490; J7644

== ENCOUNTER 2023-11-18 10:39 | Inpatient (IN) | payer MEDICAID ==
[~2023-11-18] VITALS: Ht 170.2 cm; Wt 90.7 kg
[~2023-11-18 10:39] MED LIST changes: +ALBU0.084 NEB; +ALBUAER3 IN; +BENZ100C97 PO; +PRED20TA2 PO
[2023-11-18 11:59] LABS: Alanine Aminotransferase 35 U/L (7-40); Albumin 4.8 g/dL (3.2-4.8); Alkaline Phosphatase 78 U/L (46-116); Anion Gap 12 (5-15); Aspartate Aminotransferase 30 U/L (13-40); BUN/Creatinine Ratio 13.1 (10.0-20.0); Bilirubin, Total 0.7 mg/dL (0.2-1.0); Blood Urea Nitrogen 22 mg/dL (9-23); Calcium 10.1 mg/dL (8.5-10.1); Carbon Dioxide 22 mmol/L (20-30); Chloride 104 mmol/L (98-107); Glucose 151 mg/dL (74-106); Potassium 3.5 mmol/L (3.5-5.1); Sodium 138 mmol/L (136-145); Total Protein 7.7 g/dL (5.7-8.2)
[2023-11-18 12:55] LABS: Basophils # (auto) 0.1 10 ^3/uL (0-0.2); Basophils % (auto) 0.6 % (0.0-2.0); Eosinophils # (auto) 0.4 10 ^3/uL (0-0.8); Hematocrit 41.1 % (41.0-53.0); Hemoglobin 13.8 g/dL (13.5-17.5); Lymphocytes # (auto) 2.1 10 ^3/uL (0.4-5.4); Lymphocytes % (auto) 14.1 % (10.0-50.0); Mean Corpuscular Hemoglobin 31.6 pg (28.0-32.0); Mean Corpuscular Hgb Conc. 33.7 g/dL (32.0-36.0); Monocytes # (auto) 1.3 10 ^3/uL (0-1.3); Monocytes % (auto) 9.1 % (0.0-12.0); Neutrophils # (auto) 10.9 10 ^3/uL (1.6-8.6); Neutrophils % (auto) 73.2 % (37.0-80.0); Nucleated Red Blood Cells % 0.1 %; Red Blood Cells 4.37 10^6/uL (4.5-5.90); Red Cell Distribution Width 15.3 % (11.8-14.3); White Blood Cell 14.8 10^3/uL (4.4-10.8)
[2023-11-18] MEDS: AZITHROMYCIN 500MG/ 250ML 250 ML IV ONE (17:30)
[2023-11-18] MEDS ORDERED: ACETAMINOPHEN 325 MG TAB PO PRN (21:30)
[2023-11-18] MEDS ORDERED: DOCUSATE SOD 100 MG CAP PO PRN (21:30)
[2023-11-18] MEDS ORDERED: NITROGLYCERIN 0.4 MG SL TAB SL PRN (21:30)
[2023-11-18] MEDS ORDERED: MORPHINE SULFATE INJ 2 MG/ml SYRG IV PRN (21:30)
[2023-11-18] MEDS: ASPirin 325 MG TAB PO ONE (21:41)
[2023-11-18] MEDS ORDERED: METOPROLOL TARTRATE 1MG/1ML-5ML VIAL IV PRN (21:45)
[2023-11-18] MEDS: cefTRIAXone 1GM/50ML D5W 50 ML IV ONE (21:45)
[2023-11-18 22:16] LABS: COVID19 ANTIGEN SOFIA FIA NEGATIVE (NEGATIVE); Rapid Influenza A Negative (Negative); Rapid Influenza B Negative (Negative)
[2023-11-18] MEDS: HYDROcodone-ACET 5/325MG TAB PO PRN (22:46)
[2023-11-18 23:30] VITALS: PULSE 109; RESP 27; O2SAT 97
[2023-11-18] MEDS: ONDANSETRON HCL 4 MG/2 ML VIAL IV PRN (23:42)
[2023-11-18] MEDS: MORPHINE SULFATE INJ 2 MG/ml SYRG IV PRN (23:42)
[2023-11-19] VITALS (12 sets, daily range): BP systolic 96–139; BP diastolic 51–78; PULSE 56–116; RESP 16–20; TEMP 97.6–98.7; O2SAT 92–99
[2023-11-19] MEDS ORDERED: ALBUTEROL SULF 2.5 MG/0.5ML(0.5%) NEB SOLN NEB PRN (02:15)
[2023-11-19] MEDS ORDERED: IPRATROPIUM BROM 0.5 MG/2.5ML INH SOL NEB PRN (02:15)
[2023-11-19 04:40] LABS: Urine Bacteria NONE SEEN /hpf (None Seen); Urine Blood Negative /uL (Negative); Urine Clarity Clear (Clear); Urine Color Yellow (Yellow); Urine Protein, UAD TRACE (Negative); Urine Specific Gravity 1.022 (1.001-1.035); Urine Urobilinogen Normal (Negative); Urine WBC 1 /hpf (0 - 3)
[2023-11-19 04:49] LABS: Amphetamine Screen, Urine Neg (NEGATIVE); Barbiturate Scree,Urine Neg (NEGATIVE); Benzodiazephine Screen, Urine Neg (NEGATIVE); Cocaine Screen, Urine Neg (NEGATIVE)
[2023-11-19 04:50] LABS: Cannabinoid Screen, Urine Neg (NEGATIVE); Opiate Scree,Urine Pos (NEGATIVE); Phencyclidine Screen, Urine Neg (NEGATIVE)
[2023-11-19] MEDS: PIPERACILLIN-TAZOB 3.375GM 100 ML IV SCH (05:43)
[2023-11-19] MEDS: FUROSEMIDE 20 MG/2 ML VIAL IV SCH (05:43)
[2023-11-19 06:34] LABS: Basophils # (auto) 0.1 10 ^3/uL (0-0.2); Basophils % (auto) 0.6 % (0.0-2.0); Eosinophils # (auto) 0.6 10 ^3/uL (0-0.8); Eosinophils % (auto) 5.3 % (0.0-7.0); Hematocrit 37.2 % (41.0-53.0); Hemoglobin 12.8 g/dL (13.5-17.5); Lymphocytes # (auto) 2.2 10 ^3/uL (0.4-5.4); Mean Corpuscular Hemoglobin 32.1 pg (28.0-32.0); Mean Corpuscular Hgb Conc. 34.3 g/dL (32.0-36.0); Mean Corpuscular Volume 93.5 fL (80.0-100.0); Monocytes # (auto) 1.3 10 ^3/uL (0-1.3); Monocytes % (auto) 12.1 % (0.0-12.0); Neutrophils # (auto) 6.8 10 ^3/uL (1.6-8.6); Nucleated Red Blood Cells % 0.1 %; Red Blood Cells 3.98 10^6/uL (4.5-5.90); Red Cell Distribution Width 15.3 % (11.8-14.3); White Blood Cell 10.9 10^3/uL (4.4-10.8)
[2023-11-19 06:42] LABS: Chloride 104 mmol/L (98-107); Potassium 3.9 mmol/L (3.5-5.1); Sodium 139 mmol/L (136-145)
[2023-11-19 06:43] LABS: Anion Gap 6 (5-15); Calcium 9.7 mg/dL (8.5-10.1); Carbon Dioxide 29 mmol/L (20-30)
[2023-11-19 06:48] LABS: BUN/Creatinine Ratio 18.1 (10.0-20.0); Glucose 141 mg/dL (74-106)
[2023-11-19 06:52] LABS: Blood Urea Nitrogen 33 mg/dL (9-23)
[2023-11-19] MEDS: guaiFENesin-DM 100/10mg/5ml SYR PO PRN (08:26)
[2023-11-19] MEDS: PANTOPRAZOLE 40 MG/10 ML VIAL INJ IV SCH (08:58)
[2023-11-19] MEDS: METOPROLOL TARTRATE 25 MG TAB PO SCH (08:59)
[2023-11-19] MEDS: ASPirin 81 mg TAB PO SCH (09:00)
[2023-11-19] MEDS: ENOXAPARIN SOD 40 MG/0.4 ML SYRINGE SC SCH (09:00)
[2023-11-19] MEDS: FAMOTIDINE 20 MG TAB PO SCH (12:41)
[2023-11-19] MEDS ORDERED: ALBUTEROL SULF 2.5 MG/0.5ML(0.5%) NEB SOLN NEB SCH (13:00)
[2023-11-19] MEDS ORDERED: IPRATROPIUM BROM 0.5 MG/2.5ML INH SOL NEB SCH (13:00)
[2023-11-19] MEDS: FUROSEMIDE 100 MG/10ML VIAL IV SCH (14:00)
[2023-11-19] MEDS ORDERED: FURO40TA4 PO (15:17)
[2023-11-19] MEDS ORDERED: ALBUAER3 INH (15:17)
[2023-11-19] MEDS ORDERED: MIDO10TA3 PO (15:28)
[2023-11-19] MEDS: ALBUTEROL SULF 2.5 MG/0.5ML(0.5%) NEB SOLN NEB SCH (19:23)
[2023-11-19] MEDS: IPRATROPIUM BROM 0.5 MG/2.5ML INH SOL NEB SCH (19:23)
[2023-11-19] MEDS: BUDESONIDE (INHALATION) 0.5 MG/2 ML NEB NEB SCH (19:23)
[2023-11-19] MEDS: AMOXICILLIN/CLAVUL 875 MG TAB PO SCH (21:30)
[2023-11-19] MEDS: ATORVASTATIN 20 MG TAB PO SCH (21:31)
[2023-11-20] VITALS (10 sets, daily range): BP systolic 94–108; BP diastolic 49–74; PULSE 58–107; RESP 16–22; TEMP 97.5–98; O2SAT 93–100
[2023-11-20 06:12] LABS: Basophils # (auto) 0.1 10 ^3/uL (0-0.2); Basophils % (auto) 0.9 % (0.0-2.0); Eosinophils # (auto) 0.5 10 ^3/uL (0-0.8); Eosinophils % (auto) 5.5 % (0.0-7.0); Hematocrit 37.5 % (41.0-53.0); Hemoglobin 12.6 g/dL (13.5-17.5); Lymphocytes # (auto) 1.9 10 ^3/uL (0.4-5.4); Lymphocytes % (auto) 21.2 % (10.0-50.0); Mean Corpuscular Hemoglobin 31.8 pg (28.0-32.0); Mean Corpuscular Hgb Conc. 33.7 g/dL (32.0-36.0); Mean Corpuscular Volume 94.3 fL (80.0-100.0); Monocytes # (auto) 1.1 10 ^3/uL (0-1.3); Monocytes % (auto) 12.2 % (0.0-12.0); Neutrophils # (auto) 5.4 10 ^3/uL (1.6-8.6); Neutrophils % (auto) 60.2 % (37.0-80.0); Red Blood Cells 3.98 10^6/uL (4.5-5.90); Red Cell Distribution Width 15.4 % (11.8-14.3)
[2023-11-20 06:28] LABS: Anion Gap 6 (5-15); Calcium 9.7 mg/dL (8.5-10.1); Carbon Dioxide 26 mmol/L (20-30); Chloride 105 mmol/L (98-107); Potassium 3.7 mmol/L (3.5-5.1); Sodium 137 mmol/L (136-145)
[2023-11-20 06:34] LABS: BUN/Creatinine Ratio 17.4 (10.0-20.0); Blood Urea Nitrogen 27 mg/dL (9-23); Glucose 95 mg/dL (74-106)
[2023-11-20] MEDS: NICOTINE 7MG/24HR TOPICAL PATCH TD SCH (09:33)
[2023-11-20] MEDS ORDERED: IPRATROPIUM BROM 0.5 MG/2.5ML INH SOL NEB PRN (14:30)
[2023-11-20] MEDS ORDERED: ALBUTEROL SULF 2.5 MG/0.5ML(0.5%) NEB SOLN NEB PRN (14:30)
[2023-11-20] MEDS ORDERED: BENZ100C97 PO (15:00)
[2023-11-20] MEDS ORDERED: DEXT1SYP9 PO (15:00)
[2023-11-20] MEDS ORDERED: NIC21P TOP (15:00)
[2023-11-20] MEDS ORDERED: AMOX500T86 PO (15:00)
[2023-11-20] MEDS: guaiFENesin-DM 100/10mg/5ml SYR PO SCH (15:01)
[2023-11-23] MEDS ORDERED: ALBUTEROL SULF 2.5 MG/0.5ML(0.5%) NEB SOLN NEB ONE (02:45)
== END 2023-11-20 18:21 | disposition home or self-care (01) | DRG 145 ==
LOC: ER 10:39 → TELE 21:39 → TELE-WESTW 11-19 04:08
PROVIDERS: ADMIT Nurse Practitioner Family; ATTEND Hospitalist
DX: J20.9 Acute bronchitis, unspecified (principal); J44.0 Chronic obstructive pulmonary disease with (acute) lower respiratory infection; K57.10 Diverticulosis of small intestine without perforation or abscess without bleeding; I25.10 Atherosclerotic heart disease of native coronary artery without angina pectoris; N18.32 Chronic kidney disease, stage 3b; F17.210 Nicotine dependence, cigarettes, uncomplicated; F15.10 Other stimulant abuse, uncomplicated; I34.0 Nonrheumatic mitral (valve) insufficiency; Z20.822 Contact with and (suspected) exposure to COVID-19; E66.9 Obesity, unspecified; Z82.49 Family history of ischemic heart disease and other diseases of the circulatory system; Z88.8 Allergy status to other drugs, medicaments and biological substances; Z79.899 Other long term (current) drug therapy; Z79.1 Long term (current) use of non-steroidal anti-inflammatories (NSAID); Z87.442 Personal history of urinary calculi; Z83.3 Family history of diabetes mellitus; Z83.49 Family history of other endocrine, nutritional and metabolic diseases; Z95.810 Presence of automatic (implantable) cardiac defibrillator; Z88.1 Allergy status to other antibiotic agents; Z91.041 Radiographic dye allergy status; Z68.31 Body mass index [BMI] 31.0-31.9, adult; I12.9 Hypertensive chronic kidney disease with stage 1 through stage 4 chronic kidney disease, or unspecified chronic kidney disease
CPT/HCPCS: 36415; 71046; 74176; 78582; 80048; 80053; 80307; 81001; 83880; 84484; 85025; 85379; 87426; 87804; 93005; 93306; 93970; 94640; C9113; G0378; J2405; J2543

== ENCOUNTER 2023-11-23 00:03 | Emergency (ER) | payer MEDICAID ==
[~2023-11-23] VITALS: Ht 170.2 cm; Wt 77.3 kg
[~2023-11-23 00:03] MED LIST changes: -ACET500T58 PO; +ALBUAER3 INH; +AMOX500T86 PO; -BENZ100C19 PO; +DEXT1SYP9 PO; +FURO40TA4 PO; -LORA-1130 PO; +MIDO10TA3 PO; +NIC21P TOP; -PRED20TA2 PO
[2023-11-23] MEDS ORDERED: ALBUTEROL SULF 2.5 MG/0.5ML(0.5%) NEB SOLN NEB ONE (03:00)
[2023-11-23 03:18] LABS: Basophils # (auto) 0.1 10 ^3/uL (0-0.2); Basophils % (auto) 1.1 % (0.0-2.0); Eosinophils # (auto) 0.8 10 ^3/uL (0-0.8); Eosinophils % (auto) 7.6 % (0.0-7.0); Hematocrit 41.8 % (41.0-53.0); Lymphocytes # (auto) 2.9 10 ^3/uL (0.4-5.4); Lymphocytes % (auto) 26.1 % (10.0-50.0); Mean Corpuscular Hemoglobin 31.9 pg (28.0-32.0); Mean Corpuscular Hgb Conc. 33.4 g/dL (32.0-36.0); Mean Corpuscular Volume 95.5 fL (80.0-100.0); Monocytes # (auto) 1.1 10 ^3/uL (0-1.3); Monocytes % (auto) 10.1 % (0.0-12.0); Neutrophils # (auto) 6.1 10 ^3/uL (1.6-8.6); Neutrophils % (auto) 55.1 % (37.0-80.0); Nucleated Red Blood Cells % 0.1 %; Red Blood Cells 4.38 10^6/uL (4.5-5.90); White Blood Cell 11.1 10^3/uL (4.4-10.8)
[2023-11-23 03:36] LABS: Alanine Aminotransferase 38 U/L (7-40); Albumin 4.7 g/dL (3.2-4.8); Alkaline Phosphatase 78 U/L (46-116); Anion Gap 7 (5-15); Aspartate Aminotransferase 25 U/L (13-40); BUN/Creatinine Ratio 14.4 (10.0-20.0); Bilirubin, Total 0.3 mg/dL (0.2-1.0); Blood Urea Nitrogen 20 mg/dL (9-23); Calcium 9.6 mg/dL (8.7-10.4); Carbon Dioxide 24 mmol/L (20-30); Chloride 108 mmol/L (98-107); Glucose 87 mg/dL (74-106); Potassium 3.7 mmol/L (3.5-5.1); Sodium 139 mmol/L (136-145); Total Protein 7.6 g/dL (5.7-8.2)
[2023-11-23] MEDS ORDERED: PROM2SYP2 PO (05:06)
[2023-11-23] MEDS ORDERED: CLAR1TAB21 PO (05:06)
[2023-11-23 05:23] VITALS: BP 112/63; PULSE 53; RESP 18; O2SAT 96
[2023-11-23] MEDS ORDERED: LEVO500T91 PO (06:13)
== END 2023-11-23 05:28 | disposition home or self-care (01) ==
LOC: ER 00:03
DX: J40 Bronchitis, not specified as acute or chronic (principal); J44.9 Chronic obstructive pulmonary disease, unspecified; I11.0 Hypertensive heart disease with heart failure; I50.9 Heart failure, unspecified; I25.10 Atherosclerotic heart disease of native coronary artery without angina pectoris; I25.2 Old myocardial infarction; F17.210 Nicotine dependence, cigarettes, uncomplicated; Z79.1 Long term (current) use of non-steroidal anti-inflammatories (NSAID); Z79.2 Long term (current) use of antibiotics; Z79.899 Other long term (current) drug therapy; Z88.1 Allergy status to other antibiotic agents
CPT/HCPCS: 36415; 71250; 74176; 80053; 85025; 94640

== ENCOUNTER 2023-12-19 07:04 | Emergency (ER) | payer MEDICAID ==
[~2023-12-19] VITALS: Ht 170.2 cm; Wt 89.6 kg
[~2023-12-19 07:04] MED LIST changes: +CLAR1TAB21 PO; +LEVO500T91 PO; +PROM2SYP2 PO
[2023-12-19 07:54] VITALS: BP 123/68; PULSE 112; RESP 18; TEMP 98.6; O2SAT 97
[2023-12-19] MEDS ORDERED: PROM1SOL4 PO (08:50)
[2023-12-19] MEDS ORDERED: BENZ200C64 PO (08:50)
[2023-12-19] MEDS ORDERED: AZIT-81 PO (08:50)
[2023-12-19] MEDS ORDERED: AUG875T PO (09:03)
== END 2023-12-19 08:57 | disposition home or self-care (01) ==
LOC: ER 07:04
DX: J40 Bronchitis, not specified as acute or chronic (principal); R07.89 Other chest pain; J44.9 Chronic obstructive pulmonary disease, unspecified; I11.0 Hypertensive heart disease with heart failure; I50.9 Heart failure, unspecified; I25.2 Old myocardial infarction; I25.10 Atherosclerotic heart disease of native coronary artery without angina pectoris; F17.210 Nicotine dependence, cigarettes, uncomplicated
CPT/HCPCS: 71046

== ENCOUNTER 2024-01-08 05:00 | Emergency (ER) | payer MEDICAID ==
[~2024-01-08] VITALS: Ht 170.2 cm; Wt 90.7 kg
[~2024-01-08 05:00] MED LIST changes: +AUG875T PO; +BENZ200C64 PO; +PROM1SOL4 PO
[2024-01-08] MEDS ORDERED: HYDR-4902 PO (06:46)
[2024-01-08] MEDS: HYDROcodone-ACET 10/325MG TAB PO ONE (07:03)
[2024-01-08 07:09] VITALS: BP 104/74; PULSE 86; RESP 20; TEMP 98.4; O2SAT 97
== END 2024-01-08 07:09 | disposition home or self-care (01) ==
LOC: ER 05:00
DX: I82.621 Acute embolism and thrombosis of deep veins of right upper extremity (principal); I11.0 Hypertensive heart disease with heart failure; I50.9 Heart failure, unspecified; J44.9 Chronic obstructive pulmonary disease, unspecified; Z87.442 Personal history of urinary calculi; Z88.1 Allergy status to other antibiotic agents